=== PATIENT | female | born 1940 | race Caucasian/White ===

== ENCOUNTER → 2017-08-04 14:58 | Outpatient (CLI) | payer MEDICARE, SELFPAY ==
[2017-08-04 15:33] LABS: Basophils % 0.5 % (0.1-2.0); Eosinophils # 0.1 K/mm3 (0.0-0.4); Eosinophils % 1.8 % (0.1-12.0); Hematocrit 45.1 % (37.0-47.0); Hemoglobin 14.3 g/dL (12.2-16.2); Lymphocytes # 1.7 K/mm3 (0.7-4.5); Lymphocytes % 27.5 K/mm3 (10-50); Mean Corpuscular HGB Conc 31.7 g/dL (31.8-35.4); Mean Corpuscular Hemoglobin 29.8 pg (27.0-31.2); Mean Corpuscular Volume 93.9 fl (81-99); Monocytes # 0.5 K/mm3 (0.1-1.0); Monocytes % 7.4 % (1.7-9.3); Neutrophils % 62.8 % (37.0-80.0); Platelet Count 202 K/mm3 (142-424); Red Cell Distribution Width 14.3 % (11.5-17.5); White Blood Count 6.3 K/mm3 (4.8-10.8)
[2017-08-04 16:43] LABS: Alanine Aminotransferase 16 U/L (12-78); Albumin Level 3.8 gm/dL (3.4-5.0); Alkaline Phosphatase 86 U/L (46-116); Anion Gap 10.9 mEq/L (5-15); Aspartate Amino Transferase 20 U/L (15-37); Bilirubin,Total 0.6 mg/dL (0.2-1.0); Blood Urea Nitrogen 17 mg/dL (7-18); Calcium 9.3 mg/dL (8.5-10.1); Carbon Dioxide 34 mmol/L (21.0-32.0); Chloride 102 mmol/L (98-107); Cholesterol 175 mg/dL (140-200); Creatinine,Serum 0.71 mg/dL (0.55-1.02); Estimated Glomerular Filt Rate 80 ml/min (>60); Free Thyroxine Index 2.4 ug/dL (5.93-13.13); GFR (African American) 97 ML/MIN (>60); Glucose 88 mg/dL (74-106); HDL Cholesterol 35 mg/dL (29-89); LDL Cholesterol 126 mg/dL (0-130); Potassium 4.9 mmoL/L (3.5-5.1); Sodium 142 mmol/L (136-145); T4 (Thyroxine) 7.4 ug/dl (4.7-13.3); Thyroid Stimulating Hormone 2.32 uIU/ml (0.358-3.740); Total Protein,Serum 7.8 gm/dL (6.4-8.2); Triglycerides 70 mg/dL (30-200); Triiodothryronine (T3) Uptake 32 % (31-39); VLDL Cholesterol 14 mg/dL (0-40)
== END ==
PROVIDERS: Visit Provider Internal Medicine Adolescent Medicine
DX: E03.9 Hypothyroidism, unspecified (principal); I48.2 Chronic atrial fibrillation
CPT/HCPCS: 36415; 80053; 80061; 84436; 84443; 84479; 85025

== ENCOUNTER 2018-05-04 11:53 | Inpatient (IN) ==
[2018-05-04 13:28] LABS: Basophils % 0.8 % (0.1-2.0); Eosinophils # 0.1 K/mm3 (0.0-0.4); Eosinophils % 1.8 % (0.1-12.0); Hemoglobin 12.3 g/dL (12.2-16.2); Lymphocytes # 0.7 K/mm3 (0.7-4.5); Lymphocytes % 15.4 % (10-50); Mean Corpuscular HGB Conc 30.8 g/dL (31.8-35.4); Mean Corpuscular Hemoglobin 29.3 pg (27.0-31.2); Mean Corpuscular Volume 95.3 fl (81-99); Monocytes # 0.3 K/mm3 (0.1-1.0); Neutrophils # 3.6 K/mm3 (1.8-7.8); Platelet Count 181 K/mm3 (142-424); Red Cell Distribution Width 14.7 % (11.5-17.5); White Blood Count 4.8 K/mm3 (4.8-10.8)
[2018-05-04 13:38] LABS: Albumin Level 3.5 gm/dL (3.4-5.0); Albumin/Globulin Ratio 0.9 (1.1-1.8); Anion Gap 9.6 mEq/L (5-15); Bilirubin,Total 0.9 mg/dL (0.2-1.0); Calcium 9.2 mg/dL (8.5-10.1); Globulin 3.9 gm/dl (1.3-3.2); Potassium 3.6 mmoL/L (3.5-5.1); Total Protein,Serum 7.4 gm/dL (6.4-8.2)
--- NOTE | 2018-05-04 14:10 | Pharmacy Consult Notes ---
[facility] Pharmacy VTE Monitoring - Patient Demographics Admission date: 05/04/18 Report Date: 05/04/18 Time: 14:10 Allergies/Adverse Reactions: Patient Allergies atorvastatin [ATORVASTATIN] Allergy (Intermediate, Verified 08/19/17 09:48) I-RASH Height: 1.57 m Weight: 114.929 kg - VTE Risk Labs: VTE Related Lab Results Hgb 12.3 g/dL (12.2-16.2) 05/04/18 13:14 Hct 40.0 % (37.0-47.0) 05/04/18 13:14 Plt Count 181 K/mm3 (142-424) 05/04/18 13:14 BUN 11 mg/dL (7-18) 05/04/18 13:14 Creatinine 0.90 mg/dL (0.55-1.02) 05/04/18 13:14 Estimated Creat Clear 38 mL/min (50-200) 05/04/18 13:14 Clinical Trial Participant: No - Prophylaxis VTE Prophylaxis Ordered?: Yes Types of VTE Prophylaxis: TEDS Knee High, Pharmacological Pharmacologic Type: Enoxaparin
--- NOTE | 2018-05-04 15:11 | History & Physical Report ---
*Admission Date: 05/04/18 *Chief complaint: shortness of breath, cough *History of present illness: 77 year old female with a significant history of COPD who is on oxygen at home presented to PCP office with a 3 week history of worsening shortness of breath, cough and decreased appetite. In the office she was noted to be tachypneic with room air saturations 73%. She was placed on 2L/NC and saturations responded to 89%. Patient reports right "lung pain." Appetite has been poor. States "I feel weak." Patient typically ambulates with a walker. She was unable to ambulate to the office and was transported up by staff in a wheelchair. Patient was directed admitted for IV antibiotics and further evaluation. CXR obtained on admission showed RLL infiltrate. CBC and CMP were unremarkable. [facility] History I have reviewed the patient's past medical history: Yes Medical History: Reports:: Anxiety, Asthma, Atrial Fibrillation, Chronic Obstructive Pulmonary Disease (COPD), Coronary Artery Disease, Depression, Gastroesophageal Reflux Disease(GERD), Hyperlipidemia, Hypertension, Palpitations Denies:: Cancer, Diabetes Mellitus Type 1, Internal Pacemaker, MRSA Other Medical History: Reports: Anemia, Arthritis Other Surgeries: Yes: Other. No: Pacemaker Amputation: No Fractures: No - *Social History Smoking Status: Former smoker Alcohol Intake: never Substance Use Type: denies use Occupational Status: retired Housing: house Household Members: none - Psychiatric History Expresses thoughts of harming self/others: None Suicide Plan Description: No Plan Pschychiatric History:: Reports:: Anxiety, Depression Comment: No recent travel history *Family Hx:: Coronary Artery Disease Review of Systems - Review of Systems Review of systems:: pertinent systems reviewed and negative unless documented below - Constitutional Reports malaise, Reports weakness Comments: decreased appetite - *Respiratory Reports chest congestion, Reports cough, Reports shortness of breath Meds Home Medications Medication Instructions Recorded Confirmed Type acetaminophen 500 mg capsule 1,000 mg PO Q6H PRN 06/09/17 10/21/17 History aspirin 325 mg tablet 325 mg PO ONCE tab 06/09/17 10/21/17 History buspirone 5 mg tablet 5 mg PO BID tab 06/09/17 10/21/17 History digoxin 125 mcg tablet 125 mcg PO ONCE 06/09/17 10/21/17 History diltiazem CD 240 mg 240 mg PO ONCE 06/09/17 10/21/17 History capsule,extended release 24 hr furosemide 40 mg tablet 40 mg PO DAILY 06/09/17 10/21/17 History lactulose 10 gram/15 mL oral 20 g PO DAILY ml 06/09/17 10/21/17 History solution levothyroxine 50 mcg tablet 50 mcg PO DAILY tab 06/09/17 10/21/17 History losartan 50 mg tablet 50 mg PO ONCE 06/09/17 10/21/17 History nitroglycerin 0.4 mg sublingual 0.4 mg SUBLINGUAL Q5M PRN 06/09/17 10/21/17 History tablet omeprazole 40 mg capsule,delayed 40 mg PO BID 06/09/17 10/21/17 History release potassium chloride 20 mEq oral 20 meq PO DAILY packet 06/09/17 10/21/17 History packet pravastatin 40 mg tablet 40 mg PO HS 06/09/17 10/21/17 History sertraline 100 mg tablet 100 mg PO .qday tab 06/09/17 10/21/17 History tiotropium bromide 18 mcg capsule 18 mcg INHALATION DAILY 06/09/17 10/21/17 History with inhalation device Allergies Allergy/AdvReac Type Severity Reaction Status Date / Time atorvastatin [ATORVASTATIN] Allergy Intermediate I-RASH Verified 08/19/17 09:48 Exam Vital signs and Labs for Last 24 Hours: Temp Pulse Resp BP Pulse Ox 98.6 F 116 H 20 155/106 H 91 L 05/04/18 12:59 05/04/18 12:59 05/04/18 12:59 05/04/18 12:59 05/04/18 12:59 Laboratory Results - last 24 hr 05/04/18 13:14: WBC 4.8, RBC 4.20, Hgb 12.3, Hct 40.0, MCV 95.3, MCH 29.3, MCHC 30.8 L, RDW 14.7, Plt Count 181, MPV 8.0, Neut % (Auto) 75.0, Lymph % (Auto) 15.4, [place] % (Auto) 7.0, Eos % (Auto) 1.8, Baso % (Auto) 0.8, Neut # (Auto) 3.6, Lymph # (Auto) 0.7, [place] # (Auto) 0.3, Eos # (Auto) 0.1, Baso # (Auto) 0.0 05/04/18 13:14: Sodium 140, Potassium 3.6, Chloride 100, Carbon Dioxide 34 H, Anion Gap 9.6, BUN 11, Creatinine 0.90, Estimated Creat Clear 38, Estimated GFR 61, Est GFR ( Amer) 74, Glucose 95, Calcium 9.2, Total Bilirubin 0.9, AST 21, ALT 18, Alkaline Phosphatase 72, Total Protein 7.4, Albumin 3.5, Globulin 3.9 H, Albumin/Globulin Ratio 0.9 L I & O for Last 24 hours: Intake & Output 05/02/18 05/03/18 05/04/18 05/05/18 11:59 11:59 11:59 11:59 Weight 253 lb 6 oz Narrative: Alert and oriented x3. Rate and rhythm regular. Lung sounds with coarse crackles RLL, air flow decreased. Abdomen soft and nontender. LE with 3+ lymphedema, chronic skin changes, blister left medial renner. ENT unremarkable. No acute neuro deficits. Assessment and Plan (1) CAP (community acquired pneumonia) Current visit: Yes Status: Acute Category: Medical Code(s): J18.9 - Pne umonia, unspecified organism (2) Severe chronic obstructive pulmonary disease Current visit: No Status: Chronic Category: Medical Code(s): J44.9 - Chronic obstructive pulmonary disease, unspecified - Assessment and plan all Dx Assessment and Plan for all problems:: Admit to acute care with community acquired pneumonia protocol.
[2018-05-05 06:46] LABS: Basophils % 0.8 % (0.1-2.0); Eosinophils # 0.1 K/mm3 (0.0-0.4); Hematocrit 38.4 % (37.0-47.0); Hemoglobin 11.7 g/dL (12.2-16.2); Lymphocytes # 1.1 K/mm3 (0.7-4.5); Lymphocytes % 21.4 % (10-50); Mean Corpuscular HGB Conc 30.6 g/dL (31.8-35.4); Mean Corpuscular Hemoglobin 29.5 pg (27.0-31.2); Mean Corpuscular Volume 96.2 fl (81-99); Mean Platelet Volume 8.1 fl (7.4-10.4); Monocytes # 0.5 K/mm3 (0.1-1.0); Neutrophils # 3.2 K/mm3 (1.8-7.8); Neutrophils % 65.9 % (37.0-80.0); Platelet Count 164 K/mm3 (142-424); Red Blood Count 3.98 M/mm3 (4.20-5.40); Red Cell Distribution Width 14.8 % (11.5-17.5); White Blood Count 4.9 K/mm3 (4.8-10.8)
[2018-05-05 06:54] LABS: Anion Gap 7.7 mEq/L (5-15); Calcium 8.8 mg/dL (8.5-10.1); Potassium 3.7 mmoL/L (3.5-5.1)
--- NOTE | 2018-05-05 08:20 | Progress Note ---
Internal Medicine - PN: Subj *Date: 05/05/18 *Time: 07:30 Interval history: Patient is sleeping upon entering room, awakens easily to voice. States she feels "a little better." She continues to have a productive cough, sputum is pending Alert and oriented x3. Rate and rhythm regular. 3+ lymphedema. Lung sounds with crackles RLL. Abdomen soft and nontender. Exam Vital signs and Labs for Last 24 Hours: Temp Pulse Resp BP Pulse Ox 97.9 F 107 H 21 123/74 94 L 05/05/18 07:52 05/05/18 07:52 05/05/18 07:52 05/05/18 07:52 05/05/18 07:52 Laboratory Results - last 24 hr 05/04/18 13:14: WBC 4.8, RBC 4.20, Hgb 12.3, Hct 40.0, MCV 95.3, MCH 29.3, MCHC 30.8 L, RDW 14.7, Plt Count 181, MPV 8.0, Neut % (Auto) 75.0, Lymph % (Auto) 15.4, [place] % (Auto) 7.0, Eos % (Auto) 1.8, Baso % (Auto) 0.8, Neut # (Auto) 3.6, Lymph # (Auto) 0.7, [place] # (Auto) 0.3, Eos # (Auto) 0.1, Baso # (Auto) 0.0 05/04/18 13:14: Sodium 140, Potassium 3.6, Chloride 100, Carbon Dioxide 34 H, Anion Gap 9.6, BUN 11, Creatinine 0.90, Estimated Creat Clear 38, Estimated GFR 61, Est GFR ( Amer) 74, Glucose 95, Calcium 9.2, Total Bilirubin 0.9, AST 21, ALT 18, Alkaline Phosphatase 72, Total Protein 7.4, Albumin 3.5, Globulin 3.9 H, Albumin/Globulin Ratio 0.9 L 05/05/18 05:57: WBC 4.9, RBC 3.98 L, Hgb 11.7 L, Hct 38.4, MCV 96.2, MCH 29.5, MCHC 30.6 L, RDW 14.8, Plt Count 164, MPV 8.1, Neut % (Auto) 65.9, Lymph % (Auto) 21.4, [place] % (Auto) 10.0 H, Eos % (Auto) 2.0, Baso % (Auto) 0.8, Neut # (Auto) 3.2, Lymph # (Auto) 1.1, [place] # (Auto) 0.5, Eos # (Auto) 0.1, Baso # (Auto) 0.0 05/05/18 05:57: Sodium 142, Potassium 3.7, Chloride 103, Carbon Dioxide 35 H, Anion Gap 7.7, BUN 11, Creatinine 0.85, Estimated Creat Clear 38, Estimated GFR 65, Est GFR ( Amer) 79, Glucose 94, Calcium 8.8 I & O for Last 24 hours: Intake & Output 05/02/18 05/03/18 05/04/18 05/05/18 11:59 11:59 11:59 11:59 Intake Total 720 / 720 Balance 720 / 720 Weight 253 lb 6 oz Microbiology Reports for the Last 24 Hours: Microbiology 05/04/18 16:35 Sputum - Expectorated Sputum Gram Stain - Final 05/04/18 16:35 Sputum - Expectorated Sputum Sputum Culture - Preliminary Assessment and Plan (1) CAP (community acquired pneumonia) Current visit: Yes Status: Acute Category: Medical Code(s): J18.9 - Pneumonia, unspecified organism (2) Severe chronic obstructive pulmonary disease Current visit: No Status: Chronic Category: Medical Code(s): J44.9 - Chronic obstructive pulmonary disease, unspecified (3) Hypertensive disorder Current visit: No Status: Acute Category: Medical Code(s): I10 - Essential (primary) hypertension (4) Lymphedema Current visit: No Status: Acute Category: Medical Code(s): I89.0 - Lymphedema, not elsewhere classified (5) BMI greater than 40 Current visit: Yes Status: Acute Category: Medical - Assessment and plan all Dx Assessment and Plan for all problems:: Continue IV antibiotics, sputum culture pending. Home medications restarted this morning.
--- NOTE | 2018-05-06 19:33 | Progress Note ---
Internal Medicine - PN: Subj *Date: 05/06/18 *Time: 08:30 Interval history: Patient continues to states she feels poorly. Tolerating good portions of her regular diet. Stable on 2 L nasal cannula oxygen. Still very weak, getting in bedside chair on interview. Afebrile, hemodynamically stable, cough a little more productive. Exam Vital signs and Labs for Last 24 Hours: Temp Pulse Resp BP Pulse Ox 97.9 F 79 20 96/50 L 92 L 05/06/18 15:24 05/06/18 15:24 05/06/18 15:24 05/06/18 15:24 05/06/18 15:24 I & O for Last 24 hours: Intake & Output 05/03/18 05/04/18 05/05/18 05/06/18 23:59 23:59 23:59 23:59 Intake Total 720 / 720 1020 / 1020 720 / 720 Output Total 300 / 300 Balance 720 / 720 720 / 720 720 / 720 Weight 114.929 kg 114.929 kg Microbiology Reports for the Last 24 Hours: Microbiology 05/04/18 13:14 Blood Blood Culture - Preliminary NO GROWTH AFTER 48 HOURS 05/04/18 13:14 Blood Blood Culture - Preliminary NO GROWTH AFTER 48 HOURS 05/04/18 16:35 Sputum - Expectorated Sputum Gram Stain - Final 05/04/18 16:35 Sputum - Expectorated Sputum Sputum Culture - Final Normal Respiratory Krystle Narrative: Alert and oriented x3, chronically ill-appearing, disheveled [place] obese Mild respiratory distress, crackles right lower lobe, wheeze diffuse Abdomen protuberant, nontender, active bowel sounds, bruising on abdominal wall from DVT prophylaxis 2+ bilateral lower extremity edema, no cyanosis or clubbing Assessment and Plan (1) CAP (community acquired pneumonia) Current visit: Yes Status: Acute Category: Medical Code(s): J18.9 - Pneumonia, unspecified organism (2) Severe chronic obstructive pulmonary disease Current visit: No Status: Chronic Category: Medical Code(s): J44.9 - Chronic obstructive pulmonary disease, unspecified (3) Hypertensive disorder Current visit: No Status: Acute Category: Medical Code(s): I10 - Essential (primary) hypertension (4) Lymphedema Current visit: No Status: Acute Category: Medical Code(s): I89.0 - Lymphedema, not elsewhere classified (5) BMI greater than 40 Current visit: Yes Status: Acute Category: Medical - Assessment and plan all Dx Assessment and Plan for all problems:: Continue current treatment. Still awaiting sputum cultures, no change in antibiotics or oxygen. Pending results, transition oral antibiotics tomorrow for likely discharge home at that time given patient was hemodynamically stable and afebrile
[2018-05-06 22:35] LABS: ABG Base Excess 1.7 mmol/L (-2.4-2.3); ABG HCO3 30.4 mmhg (22.0-26.0); ABG Oxygen Saturation 88 % (90-100); ABG PO2 63.7 mmhg (80-100); ABG TCO2 33.1 mmhg (23-27)
[2018-05-06 22:38] LABS: Allen's Test Patient Unable
[2018-05-06 22:39] LABS: ABG PCO2 87.3 mmhg (35.0-45.0); ABG PH 7.16 mmol/L (7.35-7.45)
[2018-05-07 06:06] LABS: ABG Base Excess 2.4 mmol/L (-2.4-2.3); ABG HCO3 30.3 mmhg (22.0-26.0); ABG Oxygen Saturation 96 % (90-100); ABG PH 7.21 mmol/L (7.35-7.45); ABG PO2 87.1 mmhg (80-100); ABG TCO2 32.7 mmhg (23-27)
[2018-05-07 06:08] LABS: Oxygen 45 %
[2018-05-07 06:09] LABS: Allen's Test Acceptable
[2018-05-07 08:11] LABS: Basophils # 0.1 K/mm3 (0-0.2); Basophils % 0.8 % (0.1-2.0); Eosinophils % 0.2 % (0.1-12.0); Hematocrit 42.9 % (37.0-47.0); Hemoglobin 12.5 g/dL (12.2-16.2); Lymphocytes # 0.7 K/mm3 (0.7-4.5); Lymphocytes % 11.6 % (10-50); Mean Corpuscular HGB Conc 29.1 g/dL (31.8-35.4); Mean Corpuscular Volume 103.2 fl (81-99); Mean Platelet Volume 8.5 fl (7.4-10.4); Monocytes # 0.5 K/mm3 (0.1-1.0); Monocytes % 8.8 % (1.7-9.3); Neutrophils # 4.5 K/mm3 (1.8-7.8); Neutrophils % 78.5 % (37.0-80.0); Platelet Count 142 K/mm3 (142-424); Red Blood Count 4.16 M/mm3 (4.20-5.40); Red Cell Distribution Width 14.4 % (11.5-17.5); White Blood Count 5.7 K/mm3 (4.8-10.8)
[2018-05-07 09:02] LABS: Anion Gap 18.9 mEq/L (5-15); Calcium 8.9 mg/dL (8.5-10.1); Potassium 4.9 mmoL/L (3.5-5.1)
--- NOTE | 2018-05-07 09:15 | Progress Note ---
Internal Medicine - PN: Subj *Date: 05/07/18 *Time: 09:15 Exam Vital signs and Labs for Last 24 Hours: Temp Pulse Resp BP Pulse Ox 97.6 F 114 H 24 94/47 L 99 05/07/18 08:00 05/07/18 08:00 05/07/18 08:00 05/07/18 08:00 05/07/18 08:00 Laboratory Results - last 24 hr 05/06/18 22:14: POC Glucose 104 05/06/18 22:33: Specimen Source Left radial, O2 % 36%, 2 lpm nc, ABG pH 7.16 L*, ABG pCO2 87.3 H, ABG pO2 63.7 L, ABG HCO3 30.4 H, ABG Total CO2 33.1 H, ABG O2 Saturation 88 L, ABG Base Excess 1.7, Efren Test Patient unable 05/07/18 06:00: Specimen Source Right radial, O2 % 45, ABG pH 7.21 L*, ABG pCO2 78.0 H, ABG pO2 87.1, ABG HCO3 30.3 H, ABG Total CO2 32.7 H, ABG O2 Saturation 96, ABG Base Excess 2.4 H, Efren Test Acceptable, Vent Rate 20, Tidal Volume bipap 18/8 05/07/18 07:40: WBC 5.7, RBC 4.16 L, Hgb 12.5, Hct 42.9, MCV 103.2 H, MCH 30.0, MCHC 29.1 L, RDW 14.4, Plt Count 142, MPV 8.5, Neut % (Auto) 78.5, Lymph % (Auto) 11.6, [place] % (Auto) 8.8, Eos % (Auto) 0.2, Baso % (Auto) 0.8, Neut # (Auto) 4.5, Lymph # (Auto) 0.7, [place] # (Auto) 0.5, Eos # (Auto) 0.0, Baso # (Auto) 0.1 05/07/18 07:40: Sodium 139, Potassium 4.9 D, Chloride 100, Carbon Dioxide 25 D , Anion Gap 18.9 H, BUN 18 D, Creatinine 2.03 H D, Estimated Creat Clear 18, Estimated GFR 24 L, Est GFR ( Amer) 29 L D, Glucose 90, Calcium 8.9 I & O for Last 24 hours: Intake & Output 05/04/18 05/05/18 05/06/18 05/07/18 23:59 23:59 23:59 23:59 Intake Total 720 / 720 1020 / 1020 720 / 720 Output Total 300 / 300 Balance 720 / 720 720 / 720 720 / 720 Weight 114.929 kg 114.929 kg Microbiology Reports for the Last 24 Hours: Microbiology 05/04/18 13:14 Blood Blood Culture - Preliminary NO GROWTH AFTER 48 HOURS 05/04/18 13:14 Blood Blood Culture - Preliminary NO GROWTH AFTER 48 HOURS 05/04/18 16:35 Sputum - Expectorated Sputum Gram Stain - Final 05/04/18 16:35 Sputum - Expectorated Sputum Sputum Culture - Final Normal Respiratory Krystle Assessment and Plan (1) CAP (community acquired pneumonia) Current visit: Yes Status: Acute Category: Medical Code(s): J18.9 - Pneumonia, unspecified organism (2) Severe chronic obstructive pulmonary disease Current visit: No Status: Chronic Category: Medical Code(s): J44.9 - Chronic obstructive pulmonary disease, unspecified (3) Hypertensive disorder Current visit: No Status: Acute Category: Medical Code(s): I10 - Essential (primary) hypertension (4) Lymphedema Current visit: No Status: Acute Category: Medical Code(s): I89.0 - Lymphedema, not elsewhere classified (5) BMI greater than 40 Current visit: Yes Status: Acute Category: Medical The patient's infection will respond to the chosen ABx?: Yes Is the patient receiving the right drug, dose, and route?: Yes Could a more targeted ABx be ordered?: No (PATIENT CONDITION IMPROVING)
--- NOTE | 2018-05-07 13:26 | Progress Note ---
Internal Medicine - PN: Subj *Date: 05/07/18 *Time: 11:00 Interval history: Over the past 12-18 hours Ms. hogan became more confused and altered. Blood gas last night showed that she had hypercarbia. Initiated on BiPAP overnight. Has tolerated well with some improvement. On interview she still pleasantly confused with orientation to person but not time or place. Additionally noted to have A. fib with RVR over a given dose of thyroxine. And added on metoprolol this morning. Remains afebrile, denies nausea or vomiting. Positive for confusion, shortness of breath. Exam Vital signs and Labs for Last 24 Hours: Temp Pulse Resp BP Pulse Ox 97.0 F L 113 H 20 118/75 90 L 05/07/18 11:27 05/07/18 11:27 05/07/18 11:27 05/07/18 11:27 05/07/18 11:27 Laboratory Results - last 24 hr 05/06/18 22:14: POC Glucose 104 05/06/18 22:33: Specimen Source Left radial, O2 % 36%, 2 lpm nc, ABG pH 7.16 L*, ABG pCO2 87.3 H, ABG pO2 63.7 L, ABG HCO3 30.4 H, ABG Total CO2 33.1 H, ABG O2 Saturation 88 L, ABG Base Excess 1.7, Efren Test Patient unable 05/07/18 06:00: Specimen Source Right radial, O2 % 45, ABG pH 7.21 L*, ABG pCO2 78.0 H, ABG pO2 87.1, ABG HCO3 30.3 H, ABG Total CO2 32.7 H, ABG O2 Saturation 96, ABG Base Excess 2.4 H, Efren Test Acceptable, Vent Rate 20, Tidal Volume bipap 18/8 05/07/18 07:40: WBC 5.7, RBC 4.16 L, Hgb 12.5, Hct 42.9, MCV 103.2 H, MCH 30.0, MCHC 29.1 L, RDW 14.4, Plt Count 142, MPV 8.5, Neut % (Auto) 78.5, Lymph % (Auto) 11.6, [place] % (Auto) 8.8, Eos % (Auto) 0.2, Baso % (Auto) 0.8, Neut # (Auto) 4.5, Lymph # (Auto) 0.7, [place] # (Auto) 0.5, Eos # (Auto) 0.0, Baso # (Auto) 0.1 05/07/18 07:40: Sodium 139, Potassium 4.9 D, Chloride 100, Carbon Dioxide 25 D , Anion Gap 18.9 H, BUN 18 D, Creatinine 2.03 H D, Estimated Creat Clear 18, Estimated GFR 24 L, Est GFR ( Amer) 29 L D, Glucose 90, Calcium 8.9 I & O for Last 24 hours: Intake & Output 05/04/18 05/05/18 05/06/18 05/07/18 23:59 23:59 23:59 23:59 Intake Total 720 / 720 1020 / 1020 720 / 720 340 / 340 Output Total 300 / 300 Balance 720 / 720 720 / 720 720 / 720 340 / 340 Weight 114.929 kg 114.929 kg Microbiology Reports for the Last 24 Hours: Microbiology 05/04/18 13:14 Blood Blood Culture - Preliminary NO GROWTH AFTER 48 HOURS 05/04/18 13:14 Blood Blood Culture - Preliminary NO GROWTH AFTER 48 HOURS Narrative: Alert and oriented x1, chronically ill-appearing, disheveled Morbidly obese Moderate respiratory distress, on BiPAP, crackles right lower lobe, mechanical breath sounds bilaterally Abdomen protuberant, nontender, active bowel sounds, bruising on abdominal wall from DVT prophylaxis 2+ bilateral lower extremity edema, no cyanosis or clubbing Assessment and Plan (1) CAP (community acquired pneumonia) Current visit: Yes Status: Acute Category: Medical Code(s): J18.9 - Pneumonia, unspecified organism (2) Severe chronic obstructive pulmonary disease Current visit: No Status: Chronic Category: Medical Code(s): J44.9 - Chronic obstructive pulmonary disease, unspecified (3) Hypertensive disorder Current visit: No Status: Acute Category: Medical Code(s): I10 - Essential (primary) hypertension (4) Lymphedema Current visit: No Status: Acute Category: Medical Code(s): I89.0 - Lymphedema, not elsewhere classified (5) BMI greater than 40 Current visit: Yes Status: Acute Category: Medical (6) Acute kidney injury Current visit: Yes Status: Acute Category: Medical Code(s): N17.9 - Acute kidney failure, unspecified (7) Acute on chronic respiratory failure with hypoxia and hypercapnia Current visit: Yes Status: Acute Category: Medical Code(s): J96.21 - Acute and chronic respiratory failure with hypoxia; J96.22 - Acute and chronic respiratory failure with hypercapnia - Assessment and plan all Dx Assessment and Plan for all problems:: Patient's condition has declined in the past 24 hours. Continues to be tenuous. At this time having really very distressed due to COPD and pneumonia. Requiring BiPAP due to. Finding well to BiPAP but still pleasantly altered. Additionally noted to have acute kidney injury this, unclear etiology is patient is not nephrotoxic medications. Suspect due to her atrial fibrillation and poor perfusion. Plan for diuresis today, this should both her edema and volume overload. Reassess kidney this evening. Repeat 8385. If time rates BiPAP overnight, transition to trilogy device. Needs physical therapy assess, plan to perform Wednesday. Strong suspicion patient will require placement at least short-term given her debility and multiple comorbidities. Do not believe she care for herself at home in current state. Continues to require aggressive inpatient management
[2018-05-07 18:05] LABS: Anion Gap 10.2 mEq/L (5-15); Calcium 8.7 mg/dL (8.5-10.1); Potassium 5.2 mmoL/L (3.5-5.1)
[2018-05-07 18:36] LABS: ABG Base Excess 3.2 mmol/L (-2.4-2.3); ABG Oxygen Saturation 98 % (90-100); ABG PH 7.28 mmol/L (7.35-7.45); ABG PO2 123.4 mmhg (80-100); Allen's Test Y; Oxygen 40 %
[2018-05-07 18:37] LABS: ABG PCO2 65.7 mmhg (35.0-45.0)
[2018-05-08 09:03] LABS: Albumin Level 3.2 gm/dL (3.4-5.0); Albumin/Globulin Ratio 0.8 (1.1-1.8); Anion Gap 13.2 mEq/L (5-15); Bilirubin,Total 0.6 mg/dL (0.2-1.0); Calcium 8.3 mg/dL (8.5-10.1); Globulin 3.8 gm/dl (1.3-3.2); Phosphorous 4.8 mg/dL (2.4-4.9); Potassium 5.2 mmoL/L (3.5-5.1)
--- NOTE | 2018-05-08 11:25 | Progress Note ---
Internal Medicine - PN: Subj *Date: 05/08/18 *Time: 10:00 Interval history: Ms. Hernandez is continue to be very tenuous over the past 24 hours. Continue to require BiPAP usage mostly when asleep. Kidney injury assessed yesterday. Did not respond to diuresis as it was initially suspected to be due to volume overload and possibly cardiorenal given her A. fib and uncontrolled rate. Course was changed overnight with initiation of fluids with mild improvement this morning. Continuing IV fluids at this time. Additionally patient's ABG has improved gradually however still quite hypercarbic with PCO2 in the 60s. She remains febrile. Heart rate improved on rate control medication. Still pleasantly confused with orientation to person only. No nausea, vomiting, diarrhea, fever, chest pain Exam Vital signs and Labs for Last 24 Hours: Temp Pulse Resp BP Pulse Ox 97.7 F 110 H 18 141/90 H 92 L 05/08/18 08:00 05/08/18 08:00 05/08/18 08:00 05/08/18 08:00 05/08/18 08:00 Laboratory Results - last 24 hr 05/07/18 07:40: B-Natriuretic Peptide 433 H 05/07/18 17:25: Sodium 137, Potassium 5.2 H, Chloride 100, Carbon Dioxide 32 D, Anion Gap 10.2, BUN 22 H, Creatinine 2.19 H, Estimated Creat Clear 16, Estimated GFR 22 L, Est GFR ( Amer) 26 L, Glucose 93, Calcium 8.7 05/07/18 18:32: Specimen Source L/r, O2 % 40, ABG pH 7.28 L, ABG pCO2 65.7 H, ABG pO2 123.4 H, ABG HCO3 30.0 H, ABG Total CO2 32.0 H, ABG O2 Saturation 98, ABG Base Excess 3.2 H, Efren Test Y, Vent Rate 20 05/07/18 21:40: B-Natriuretic Peptide 513 H 05/08/18 08:40: Sodium 136, Potassium 5.2 H, Chloride 100, Carbon Dioxide 28, Anion Gap 13.2, BUN 26 H, Creatinine 1.96 H, Estimated Creat Clear 18, Estimated GFR 25 L, Est GFR ( Amer) 30 L, Glucose 99, Calcium 8.3 L, Phosphorus 4.8, Magnesium 1.8, Total Bilirubin 0.6, AST 33, ALT 21, Alkaline Phosphatase 65, Total Protein 7.0, Albumin 3.2 L, Globulin 3.8 H, Albumin/Globulin Ratio 0.8 L I & O for Last 24 hours: Intake & Output 05/05/18 05/06/18 05/07/18 05/08/18 23:59 23:59 23:59 23:59 Intake Total 1020 / 1020 720 / 720 400 / 400 3128 / 3128 Output Total 300 / 300 180 / 180 350 / 350 Balance 720 / 720 720 / 720 220 / 220 2778 / 2778 Weight 114.929 kg Narrative: Morbidly obese, disheveled, chronically ill-appearing Alert and oriented x1 On BiPAP, mild respiratory distress, crackles right lower lobe with mechanical vent sounds bilaterally Abdomen protuberant, nontender, active bowel sounds, bruising on abdominal wall from DVT prophylaxis 2+ bilateral lower extremity edema, no cyanosis or clubbing Assessment and Plan (1) CAP (community acquired pneumonia) Current visit: Yes Status: Acute Category: Medical Code(s): J18.9 - Pneumonia, unspecified organism (2) Severe chronic obstructive pulmonary disease Current visit: No Status: Chronic Category: Medical Code(s): J44.9 - Chronic obstructive pulmonary disease, unspecified (3) Hypertensive disorder Current visit: No Status: Acute Category: Medical Code(s): I10 - Essential (primary) hypertension (4) Lymphedema Current visit: No Status: Acute Category: Medical Code(s): I89.0 - Lymphedema, not elsewhere classified (5) BMI greater than 40 Current visit: Yes Status: Acute Category: Medical (6) Acute kidney injury Current visit: Yes Status: Acute Category: Medical Code(s): N17.9 - Acute kidney failure, unspecified (7) Acute on chronic respiratory failure with hypoxia and hypercapnia Current visit: Yes Status: Acute Category: Medical Code(s): J96.21 - Acute and chronic respiratory failure with hypoxia; J96.22 - Acute and chronic respiratory failure with hypercapnia - Assessment and plan all Dx Assessment and Plan for all problems:: Patient's condition remains tenuous. Continuing to require BiPAP ventilation with stable mentation. Improved rate control with A. fib. Condition still day by day -Increasing metoprolol for better rate control to 25 mg twice daily -Initiate steroids for COPD versus pneumonia to aid in inflammation -Increase breathing treatment periodicity to every 4 hours -Avoiding nephrotoxins -Continue IV fluids as patient appears to be responding to fluid resuscitation versus previous attempt at diuresis with slight improvement in kidney dysfunction. Repeat lab work this afternoon at 5 PM and in the morning. -Repeat ABG in the morning -Continue BiPAP while asleep, nasal cannula while awake
[2018-05-08 17:26] LABS: Anion Gap 14.3 mEq/L (5-15); Calcium 8.6 mg/dL (8.5-10.1); Potassium 5.3 mmoL/L (3.5-5.1)
[2018-05-09 05:46] LABS: ABG Base Excess -4.5 mmol/L (-2.4-2.3); ABG HCO3 22.3 mmhg (22.0-26.0); ABG Oxygen Saturation 93 % (90-100); ABG PCO2 48.6 mmhg (35.0-45.0); ABG PH 7.28 mmol/L (7.35-7.45); ABG PO2 71.8 mmhg (80-100); ABG TCO2 23.8 mmhg (23-27)
[2018-05-09 05:48] LABS: Oxygen 35 %
[2018-05-09 05:49] LABS: Allen's Test Non Applicable
[2018-05-09 06:19] LABS: Basophils % 0.2 % (0.1-2.0); Eosinophils % 0.5 % (0.1-12.0); Hematocrit 41.9 % (37.0-47.0); Hemoglobin 12.6 g/dL (12.2-16.2); Lymphocytes # 0.6 K/mm3 (0.7-4.5); Lymphocytes % 12.4 % (10-50); Mean Corpuscular HGB Conc 30.1 g/dL (31.8-35.4); Mean Corpuscular Hemoglobin 29.5 pg (27.0-31.2); Mean Platelet Volume 8.4 fl (7.4-10.4); Monocytes # 0.1 K/mm3 (0.1-1.0); Monocytes % 2.8 % (1.7-9.3); Neutrophils # 3.9 K/mm3 (1.8-7.8); Neutrophils % 84.1 % (37.0-80.0); Platelet Count 157 K/mm3 (142-424); Red Blood Count 4.27 M/mm3 (4.20-5.40); Red Cell Distribution Width 14.8 % (11.5-17.5); White Blood Count 4.7 K/mm3 (4.8-10.8)
[2018-05-09 07:44] LABS: Anion Gap 18.7 mEq/L (5-15); Calcium 8.4 mg/dL (8.5-10.1)
[2018-05-09 07:46] LABS: Potassium 5.7 mmoL/L (3.5-5.1)
--- NOTE | 2018-05-09 09:50 | Progress Note ---
Internal Medicine - PN: Subj *Date: 05/09/18 *Time: 08:30 Interval history: overnight Ms. Hernandez has shown improvement on BiPAP. She is more alert and oriented this morning. Knows Name, Place, and year. Kidney function slightly improved with diuresis and respiratory failure stable. Still no BM over the past 24hrs. Allen collecting urine. remains afebrile, BP stable, HR controlled on Metoprolol. No Emesis. C/o stable SOA, gerd Sx with eating, Constipation. Family member at bedside for part of exam this morning who agrees patient has interval improvement since yesterday. Exam Vital signs and Labs for Last 24 Hours: Temp Pulse Resp BP Pulse Ox 97.9 F 92 H 22 132/73 91 L 05/09/18 07:57 05/09/18 09:45 05/09/18 07:57 05/09/18 07:57 05/09/18 08:21 Laboratory Results - last 24 hr 05/08/18 17:04: Sodium 137, Potassium 5.3 H, Chloride 101, Carbon Dioxide 27, Anion Gap 14.3, BUN 30 H, Creatinine 2.00 H, Estimated Creat Clear 18, Estimated GFR 24 L, Est GFR ( Amer) 29 L, Glucose 91, Calcium 8.6 05/08/18 21:21: POC Glucose 86 05/09/18 05:50: WBC 4.7 L, RBC 4.27, Hgb 12.6, Hct 41.9, MCV 98.0, MCH 29.5, MCHC 30.1 L, RDW 14.8, Plt Count 157, MPV 8.4, Neut % (Auto) 84.1 H, Lymph % (Auto) 12.4, [place] % (Auto) 2.8, Eos % (Auto) 0.5, Baso % (Auto) 0.2, Neut # (Auto) 3.9, Lymph # (Auto) 0.6 L, [place] # (Auto) 0.1, Eos # (Auto) 0.0, Baso # (Auto) 0.0 05/09/18 06:00: Specimen Source Right radial, O2 % 35, ABG pH 7.28 L, ABG pCO2 48.6 H, ABG pO2 71.8 L, ABG HCO3 22.3, ABG Total CO2 23.8, ABG O2 Saturation 93, ABG Base Excess -4.5 L, Efren Test Non applicable, Vent Rate 25, Tidal Volume Bipap 20/10 05/09/18 07:20: Sodium 136, Potassium 5.7 H, Chloride 100, Carbon Dioxide 23, Anion Gap 18.7 H, BUN 37 H, Creatinine 1.64 H, Estimated Creat Clear 22, Estimated GFR 30 L, Est GFR ( Amer) 37 L D, Glucose 119 H D, Calcium 8.4 L I & O for Last 24 hours: Intake & Output 05/06/18 05/07/18 05/08/18 05/09/18 23:59 23:59 23:59 23:59 Intake Total 720 / 720 400 / 400 5724 / 5724 1477 / 1477 Output Total 180 / 180 985 / 985 225 / 225 Balance 720 / 720 220 / 220 4739 / 4739 1252 / 1252 Weight 114.929 kg 123.009 kg 124.851 kg Narrative: Alert and oriented x3, chronically ill-appearing, disheveled, Morbidly obese mild respiratory distress, on Vapotherm, interval improvement in Lung exam, still with slight crackles right lower lobe, no wheeze or rhonchi. Abdomen protuberant, nontender, active bowel sounds, bruising on abdominal wall from DVT prophylaxis 3+ bilateral lower extremity edema to thigh, no cyanosis or clubbing PLeasant mood. no focal neurologic deficits, moves extremities equally, strength 5/5 in BUE and 3/5 BLE Assessment and Plan (1) CAP (community acquired pneumonia) Current visit: Yes Status: Acute Category: Medical Code(s): J18.9 - Pneumonia, unspecified organism (2) Severe chronic obstructive pulmonary disease Current visit: No Status: Chronic Category: Medical Code(s): J44.9 - Chronic obstructive pulmonary disease, unspecified (3) Hypertensive disorder Current visit: No Status: Acute Category: Medical Code(s): I10 - Essential (primary) hypertension (4) Lymphedema Current visit: No Status: Acute Category: Medical Code(s): I89.0 - Lymphedema, not elsewhere classified (5) BMI greater than 40 Current visit: Yes Status: Acute Category: Medical (6) Acute kidney injury Current visit: Yes Status: Acute Category: Medical Code(s): N17.9 - Acute kidney failure, unspecified (7) Acute on chronic respiratory failure with hypoxia and hypercapnia Current visit: Yes Status: Acute Category: Medical Code(s): J96.21 - Acute and chronic respiratory failure with hypoxia; J96.22 - Acute and chronic respiratory failure with hypercapnia - Assessment and plan all Dx Assessment and Plan for all problems:: 77yo Critically ill female with minor interval improvement in her respiratory failure. Able to transition from BiPAP to VapoTherm today. patient more alert but still weak. Maintain reservation about improvement and condition. Condition remains tenuous. - slight improvement in renal function, repeat labs q12 to monitor improvement - interval decrease in K - diurese again today x 2 - Cardiology consult pending, appreciate recs. Echo pending - plan for Goals of care discussion with family this afternoon. Currently patient does not want to kept alive with machines if there is no hope. She does however want to be resuscitated if there is a chance of improvement. - continues to be day by day. If worsens pt has requested [facility]. - continue IV fluids, decrease to 75cc/hr. - SpO2 goal >88 asleep, >92 awake. - PO as tolerated. - Continue Steroids and Abx for CAP.
--- NOTE | 2018-05-09 13:53 | Consult Report ---
History of Present Illness Consult date: 05/09/18 Requesting physician: Gabo Galicia Consult reason: shortness of breath Chief complaint: Shortness of breath History of present illness: This is a 77-year-old white female who was admitted to the hospital with shortness of breath. The patient was actually admitted on May 04, 2018 due to shortness of breath a an acute on chronic respiratory failure. The patient has had episodes of atrial fibrillation with RVR as well as an acute exacerbation of congestive heart failure. The patient has been diuresed with IV Lasix. The patient was on BiPAP through the night last night and she reports that her shortness of breath is better today. She has been having some confusion but this morning she is oriented to herself place and time. I am she denies any chest pain or pressure. She does state that she has shortness of breath. She also has PND and orthopnea with this. She denies any edema. She denies fever chills nausea vomiting or diarrhea. She states that her shortness of breath is with rest and exertion. She states she feels much better today than she did yesterday. [facility] History Medical History: Reports:: Anxiety, Asthma, Atrial Fibrillation, Chronic Obstructive Pulmonary Disease (COPD), Coronary Artery Disease, Depression, Gastroesophageal Reflux Disease(GERD), Hyperlipidemia, Hypertension, Palpitations Denies:: Cancer, Diabetes Mellitus Type 1, Internal Pacemaker, MRSA Have you ever received a pneumonia vaccine?: Yes Have you received a flu vaccine this season?: Yes Other Medical History: Reports: Anemia, Arthritis Other Surgeries: Yes: Other. No: Pacemaker Amputation: No Fractures: No - *Social History Smoking Status: Former smoker Alcohol Intake: never Substance Use Type: denies use Occupational Status: retired Housing: house Household Members: none Travel in the last 8 weeks: None - Psychiatric History Expresses thoughts of harming self/others: None Suicide Plan Description: No Plan Pschychiatric History:: Reports:: Anxiety, Depression *Family Hx:: Coronary Artery Disease Meds Home Medications Medication Instructions Recorded Confirmed Type acetaminophen 500 mg capsule 1,000 mg PO Q6H PRN 06/09/17 05/04/18 History buspirone 5 mg tablet 5 mg PO BID tab 06/09/17 05/04/18 History furosemide 40 mg tablet 40 mg PO DAILY 06/09/17 05/04/18 History lactulose 10 gram/15 mL oral 20 g PO DAILY ml 06/09/17 05/04/18 History solution levothyroxine 50 mcg tablet 50 mcg PO DAILY tab 06/09/17 05/04/18 History nitroglycerin 0.4 mg sublingual 0.4 mg SUBLINGUAL Q5M PRN 06/09/17 05/04/18 History tablet omeprazole 40 mg capsule,delayed 40 mg PO BID 06/09/17 05/04/18 History release potassium chloride 20 mEq oral 20 meq PO DAILY packet 06/09/17 05/04/18 History packet pravastatin 40 mg tablet 40 mg PO HS 06/09/17 05/04/18 History sertraline 100 mg tablet 100 mg PO DAILY tab 06/09/17 05/04/18 History tiotropium bromide 18 mcg capsule 18 mcg INHALATION DAILY 06/09/17 05/04/18 History with inhalation device Aspirin [Ecotrin] 81 mg PO DAILY 05/05/18 05/05/18 History Budesonide/Formoterol Fumarate 2 puff IH BID 05/05/18 05/05/18 History [Symbicort 160-4.5 Mcg Inhaler] Allergies Allergy/AdvReac Type Severity Reaction Status Date / Time atorvastatin [ATORVASTATIN] Allergy Intermediate I-RASH Verified 08/19/17 09:48 Review of Systems - Review of Systems Review of systems:: pertinent systems reviewed and negative unless documented below - Constitutional Reports fatigue, Reports lack of energy - *Cardiovascular Reports shortness of breath, Reports shortness of breath with activity - *Respiratory Reports shortness of breath, Reports shortness of breath with activity Comments: Orthopnea - *Neurologic Reports weakness Exam Vital signs and Labs for Last 24 Hours: Temp Pulse Resp BP Pulse Ox 97.9 F 100 H 18 124/64 90 L 05/09/18 11:21 05/09/18 12:00 05/09/18 11:21 05/09/18 11:21 05/09/18 11:21 Laboratory Results - last 24 hr 05/08/18 17:04: Sodium 137, Potassium 5.3 H, Chloride 101, Carbon Dioxide 27, Anion Gap 14.3, BUN 30 H, Creatinine 2.00 H, Estimated Creat Clear 18, Estimated GFR 24 L, Est GFR ( Amer) 29 L, Glucose 91, Calcium 8.6 05/08/18 21:21: POC Glucose 86 05/09/18 05:50: WBC 4.7 L, RBC 4.27, Hgb 12.6, Hct 41.9, MCV 98.0, MCH 29.5, MCHC 30.1 L, RDW 14.8, Plt Count 157, MPV 8.4, Neut % (Auto) 84.1 H, Lymph % (Auto) 12.4, [place] % (Auto) 2.8, Eos % (Auto) 0.5, Baso % (Auto) 0.2, Neut # (Auto) 3.9, Lymph # (Auto) 0.6 L, [place] # (Auto) 0.1, Eos # (Auto) 0.0, Baso # (Auto) 0.0 05/09/18 06:00: Specimen Source Right radial, O2 % 35, ABG pH 7.28 L, ABG pCO2 48.6 H, ABG pO2 71.8 L, ABG HCO3 22.3, ABG Total CO2 23.8, ABG O2 Saturation 93, ABG Base Excess -4.5 L, Efren Test Non applicable, Vent Rate 25, Tidal Volume Bipap 19/0205/09/18 07:20: Sodium 136, Potassium 5.7 H, Chloride 100, Carbon Dioxide 23, Anion Gap 18.7 H, BUN 37 H, Creatinine 1.64 H, Estimated Creat Clear 22, Estimated GFR 30 L, Est GFR ( Amer) 37 L D, Glucose 119 H D, Calcium 8.4 L I & O for Last 24 hours: Intake & Output 05/06/18 05/07/18 05/08/18 05/09/18 23:59 23:59 23:59 23:59 Intake Total 720 / 720 400 / 400 5724 / 5724 1477 / 1477 Output Total 180 / 180 985 / 985 225 / 225 Balance 720 / 720 220 / 220 4739 / 4739 1252 / 1252 Weight 253 lb 6.001 oz 271 lb 3 oz 275 lb 4 oz Microbiology Reports for the Last 24 Hours: Microbiology 05/04/18 13:14 Blood Blood Culture - Final NO GROWTH AFTER 5 DAYS 05/04/18 13:14 Blood Blood Culture - Final NO GROWTH AFTER 5 DAYS Narrative: Her EKG shows atrial fibrillation with RVR, heart rate 110, left anterior hem iblock, and diffuse ST and T wave abnormalities. Her telemetry strip shows atrial fibrillation with a rate of 88. - Constitutional no acute distress, morbidly obese, chronically ill appearing, cooperative - *Routine HEENT Exam Head: Present: normocephalic, atraumatic Eye: Present: EOMI, PERRL ENT: Present: mucous membranes moist - *Routine Neck Exam Present: supple, full ROM, normal carotid upstroke. Absent: JVD, carotid bruit, lymphadenopathy - *Routine Respiratory Exam Present: wheezes (Expiratory), diminished air movement - *Routine Cardiovascular Exam Present: Normal S1, Normal S2, irregularly irregular. Absent: murmur, gallop - *Routine Abdominal Exam Present: soft, normoactive bowel sounds. Absent: tenderness, distended - *Routine Extremities Exam Present: edema (BLE wrapped), pulses intact. Absent: cyanosis, clubbing - *Routine Skin Exam Present: intact, warm. Absent: rash - *Routine Neurological Exam Present: alert, oriented X3, CN II-XII intact. Absent: sensory deficit, motor deficit - Routine Psychiatric Exam Present: normal affect Assessment and Plan (1) CHF (congestive heart failure) Current visit: Yes Status: Acute Category: Medical Code(s): I50.9 - Heart failure, unspecified (2) Atrial fibrillation Current visit: Yes Status: Acute Category: Medical Code(s): I48.91 - Unspecified atrial fibrillation (3) Acute on chronic respiratory failure with hypoxia and hypercapnia Current visit: Yes Status: Acute Category: Medical Code(s): J96.21 - Acute and chronic respiratory failure with hypoxia; J96.22 - Acute and chronic respiratory failure with hypercapnia (4) Severe chronic obstructive pulmonary disease Current visit: No Status: Chronic Category: Medical Code(s): J44.9 - Chronic obstructive pulmonary disease, unspecified (5) CAP (community acquired pneumonia) Current visit: Yes Status: Acute Category: Medical Code(s): J18.9 - Pneumonia, unspecified organism (6) Hypertensive disorder Current visit: No Status: Acute Category: Medical Code(s): I10 - Essential (primary) hypertension (7) Lymphedema Current visit: No Status: Acute Category: Medical Code(s): I89.0 - Lymphedema, not elsewhere classified (8) BMI greater than 40 Current visit: Yes Status: Acute Category: Medical (9) Acute kidney injury Current visit: Yes Status: Acute Category: Medical Code(s): N17.9 - Acute kidney failure, unspecified - Assessment and plan all Dx Assessment and Plan for all problems:: Plan: 1. The patient was admitted to the hospital with shortness of breath. She is currently being treated for COPD and acute on chronic respiratory failure. The patient was on BiPAP last night. She does have improvement in her symptoms today. We will defer management of her COPD and her respiratory failure to her primary care provide. 2. The patient does have pulmonary venous congestion on her chest x-ray which did improve today. The patient was diuresed with Lasix and did tolerate this well. 3. The patient did have atrial fibrillation with RVR. Her heart rate is down some today running anywhere from 88 to low 100s. We will increase her metoprolol to 50 mg p.o. twice daily for better heart rate control. 4. Will get an echocardiogram to evaluate her LV function and to evaluate her congestive heart failure. 5. Her blood pressure is well controlled. 6. Her LDL goal is less than 100. 7. The patient does have chronic kidney disease. Her creatinine is stable at 1.64 today which is down from 2.00. 8. The patient does have congestive heart failure and pulmonary venous congestion on her chest x-ray. We do need to be mindful of the amount of fluid intake the patient is receiving. 9. We will hold off on anticoagulation at this time due to her confusion and falls risk. 10. Further recommendations will be made pending the patient's response to treatment. Thank you for the opportunity help to spent care of this patient.
[2018-05-09 17:44] LABS: Basophils % 0.2 % (0.1-2.0); Eosinophils % 0.6 % (0.1-12.0); Hematocrit 40.8 % (37.0-47.0); Hemoglobin 12.5 g/dL (12.2-16.2); Lymphocytes # 0.6 K/mm3 (0.7-4.5); Lymphocytes % 7.5 % (10-50); Mean Corpuscular HGB Conc 30.7 g/dL (31.8-35.4); Mean Corpuscular Hemoglobin 29.3 pg (27.0-31.2); Mean Corpuscular Volume 95.6 fl (81-99); Mean Platelet Volume 7.5 fl (7.4-10.4); Monocytes # 0.4 K/mm3 (0.1-1.0); Monocytes % 4.9 % (1.7-9.3); Neutrophils # 6.4 K/mm3 (1.8-7.8); Neutrophils % 86.7 % (37.0-80.0); Platelet Count 206 K/mm3 (142-424); Red Blood Count 4.27 M/mm3 (4.20-5.40); Red Cell Distribution Width 14.8 % (11.5-17.5); White Blood Count 7.4 K/mm3 (4.8-10.8)
[2018-05-09 17:47] LABS: Albumin Level 3.1 gm/dL (3.4-5.0); Albumin/Globulin Ratio 0.8 (1.1-1.8); Bilirubin,Total 0.5 mg/dL (0.2-1.0); Calcium 8.3 mg/dL (8.5-10.1); Total Protein,Serum 7.1 gm/dL (6.4-8.2)
[2018-05-09 18:30] LABS: Lymphocytes % 7 % (10-50); Monocytes % 2 % (2-9); Neutrophils % 89 % (42-76); RBC Morphology Normal; Total Cells Counted 100
--- NOTE | 2018-05-09 22:52 | Cardiology Report ---
PROCEDURE: 2-D M-mode and color Doppler study INDICATIONS FOR THE TEST: Chest pain COPD+ Heart Murmur Tobacco Smoking Palpitations Fatigue Syncope Edema+ Hypertension Diabetes Mellitus Rheumatic Fever SOB MUSTAFA Obesity Hyperlipidemia Family History HD Additional History BIPAP PATIENT INFORMATION HEIGHT: 61 WEIGHT:253 GENDER: Female B/P:141/90 2-D/M-MODE INTERPRETATION: 2-D MEASUREMENTS OBSERVED VALUES IN CMS Right Ventricular Dimension (RVDd) 3.4 Interventricular Septum (Thickness)(IVsd) 2.1 Left Ventricular Internal Dimensions(LVIDd) 5.3 Left Ventricular Posterior Wall (Thickness)(LVPWd) 1.3 Aortic Root 3.6 Aortic Cusp Separation 2.0 Left Atrial Dimensions (LAD) 5.8 2D 1. Technically very poor and difficult study, a repeat study with Definity contrast is recommended. 2. The left atrium is moderately enlarged, left ventricle is normal size, mild concentric left ventricular hypertrophy, probably preserved left ventricular systolic function, repeat study with Definity contrast is recommended. 3. Moderately enlarged right atrium and right ventricle, contractility of the right ventricle appears to be normal. 4. The mitral valve has dense mitral calcification, leaflets are minimally thickened. 5. The tricuspid valve is grossly normal. 6. The pulmonic valve is poorly present. 7. No significant pericardial effusion noted. DOPPLER INTERROGATION: Doppler interrogation of the aortic, mitral and tricuspid valvular presence of moderate mitral and tricuspid regurgitation, calculated right ventricular systolic pressure is 49 mmHg consistent moderate pulmonary hypertension. Diastolic parameters are inconclusive. CONCLUSION: 1. Moderate biatrial enlargement, normal left ventricular size, mild concentric left ventricular hypertrophy estimated ejection fraction 55% with no regional wall motion abnormality, a repeat study with Definity contrast is recommended. 2. Moderately enlarged right ventricle with normal contractility. 3. Thickened and calcified aortic valve without aortic stenosis. 4. Moderate mitral and tricuspid regurgitation, calculated right ventricular systolic pressure is 49 mmHg consistent with moderate pulmonary hypertension, Doppler evidence of raised left ventricular end-diastolic pressure. 5. No significant pericardial effusion noted.
[2018-05-10 06:42] LABS: Anion Gap 11.8 mEq/L (5-15); Calcium 8.5 mg/dL (8.5-10.1); Potassium 4.8 mmoL/L (3.5-5.1)
[2018-05-10 06:58] LABS: Basophils % 0.1 % (0.1-2.0); Eosinophils % 0.1 % (0.1-12.0); Hematocrit 40.3 % (37.0-47.0); Hemoglobin 12.7 g/dL (12.2-16.2); Lymphocytes # 0.5 K/mm3 (0.7-4.5); Lymphocytes % 8.3 % (10-50); Mean Corpuscular HGB Conc 31.5 g/dL (31.8-35.4); Mean Corpuscular Hemoglobin 30.2 pg (27.0-31.2); Mean Corpuscular Volume 95.7 fl (81-99); Mean Platelet Volume 7.6 fl (7.4-10.4); Monocytes # 0.3 K/mm3 (0.1-1.0); Monocytes % 4.3 % (1.7-9.3); Neutrophils # 5.1 K/mm3 (1.8-7.8); Neutrophils % 87.1 % (37.0-80.0); Platelet Count 175 K/mm3 (142-424); Red Blood Count 4.21 M/mm3 (4.20-5.40); Red Cell Distribution Width 14.9 % (11.5-17.5); White Blood Count 5.9 K/mm3 (4.8-10.8)
[2018-05-10 09:26] LABS: Lymphocytes % 6 % (10-50); Monocytes % 3 % (2-9); Neutrophils % 91 % (42-76); Total Cells Counted 100
--- NOTE | 2018-05-10 09:52 | Progress Note ---
Subjective Date: 05/10/18 Time: 09:49 Principal diagnosis: SOB, pulmon htn Interval history: This is a 77-year-old white female who was admitted with shortness of breath and acute on chronic respiratory failure. The patient did undergo echocardiogram yesterday which showed a normal ejection fraction at 55%. However there was moderate biatrial enlargement and a Definity contrast echocardiogram was recommended. The patient did have moderate mitral regurgitation as well as moderate pulmonary hypertension. The patient does need diuresis. She remains in atrial fibrillation today with a high heart rate. This morning she reports that she is more short of breath again today. She is more short of breath today than she was yesterday. This is at rest. She states nothing makes her shortness of breath better. She denies any chest pain or pressure. She denies any fever chills nausea vomiting diarrhea. She is complaining of orthopnea. She is somewhat confused at times but she does reorient easily. Exam Vital signs and Labs for Last 24 Hours: Temp Pulse Resp BP Pulse Ox 97.7 F 78 22 115/79 94 L 05/10/18 08:00 05/10/18 08:00 05/10/18 08:00 05/10/18 08:00 05/10/18 08:00 Laboratory Results - last 24 hr 05/09/18 17:28: WBC 7.4 D, RBC 4.27, Hgb 12.5, Hct 40.8, MCV 95.6, MCH 29.3, MCHC 30.7 L, RDW 14.8, Plt Count 206 D, MPV 7.5, Neut % (Auto) 86.7 H, Lymph % (Auto) 7.5 L, [place] % (Auto) 4.9, Eos % (Auto) 0.6, Baso % (Auto) 0.2, Neut # (Auto) 6.4, Lymph # (Auto) 0.6 L, [place] # (Auto) 0.4, Eos # (Auto) 0.0, Baso # (Auto) 0.0, Total Counted 100, Neutrophils % (Manual) 89 H, Band Neutrophils % 2.0, Lymphocytes % (Manual) 7 L, Monocytes % (Manual) 2, Platelet Estimate Normal, RBC Morphology Normal 05/09/18 17:28: Sodium 136, Potassium 5.0, Chloride 100, Carbon Dioxide 28 D, Anion Gap 13.0, BUN 41 H, Creatinine 1.84 H, Estimated Creat Clear 20, Estimated GFR 27 L, Est GFR ( Amer) 32 L, Glucose 127 H, Calcium 8.3 L, Total Bilirubin 0.5, AST 24 D, ALT 20, Alkaline Phosphatase 63, Total Protein 7.1, Albumin 3.1 L, Globulin 4.0 H, Albumin/Globulin Ratio 0.8 L 05/10/18 05:55: WBC 5.9, RBC 4.21, Hgb 12.7, Hct 40.3, MCV 95.7, MCH 30.2, MCHC 31.5 L, RDW 14.9, Plt Count 175, MPV 7.6, Neut % (Auto) 87.1 H, Lymph % (Auto) 8.3 L, [place] % (Auto) 4.3, Eos % (Auto) 0.1, Baso % (Auto) 0.1, Neut # (Auto) 5.1, Lymph # (Auto) 0.5 L, [place] # (Auto) 0.3, Eos # (Auto) 0.0, Baso # (Auto) 0. 0, Total Counted 100, Neutrophils % (Manual) 91 H, Lymphocytes % (Manual) 6 L, Monocytes % (Manual) 3, Platelet Estimate Normal 05/10/18 05:55: Sodium 136, Potassium 4.8, Chloride 101, Carbon Dioxide 28, Anion Gap 11.8, BUN 45 H, Creatinine 1.66 H, Estimated Creat Clear 22, Estimated GFR 30 L, Est GFR ( Amer) 36 L, Glucose 123 H, Calcium 8.5 I & O for Last 24 hours: Intake & Output 05/07/18 05/08/18 05/09/18 05/10/18 23:59 23:59 23:59 23:59 Intake Total 400 / 400 5724 / 5724 2894 / 2894 600 / 600 Output Total 180 / 180 985 / 985 725 / 725 1000 / 1000 Balance 220 / 220 4739 / 4739 2169 / 2169 -400 / -400 Weight 271 lb 3 oz 275 lb 4 oz 278 lb 7 oz Microbiology Reports for the Last 24 Hours: Microbiology 05/04/18 13:14 Blood Blood Culture - Final NO GROWTH AFTER 5 DAYS 05/04/18 13:14 Blood Blood Culture - Final NO GROWTH AFTER 5 DAYS Narrative: Her telemetry strip shows atrial fibrillation with a rate of 89-92. - Constitutional no acute distress, morbidly obese, chronically ill appearing - *Routine HEENT Exam Head: Present: normocephalic, atraumatic Eye: Present: EOMI, PERRL ENT: Present: mucous membranes moist - *Routine Neck Exam Present: supple, full ROM, normal carotid upstroke. Absent: JVD, carotid bruit - *Routine Respiratory Exam Present: decreased breath sounds, rales, wheezes - *Routine Cardiovascular Exam Present: Normal S1, Normal S2, murmur (faint systolic murmur), irregularly irregular. Absent: gallop, rubs - *Routine Abdominal Exam Present: soft, normoactive bowel sounds. Absent: tenderness, distended - *Routine Extremities Exam Present: edema (BLEs, wrapped in bandages bilaterally.), pulses intact. Absent: cyanosis, clubbing - *Routine Skin Exam Present: warm. Absent: rash Comments: BLEs wrapped in bandages - *Routine Neurological Exam Present: alert, CN II-XII intact (Alert to self and place; reorients easily) Progress Note: A&P (1) Pulmonary hypertension Status: Acute Current Visit: Yes (2) Biatrial enlargement Status: Acute Current Visit: Yes (3) SOB (shortness of breath) Status: Acute Current Visit: No (4) CAP (community acquired pneumonia) Status: Acute Current Visit: Yes (5) Severe chronic obstructive pulmonary disease Status: Chronic Current Visit: No (6) Hypertensive disorder Status: Acute Current Visit: No (7) Lymphedema Status: Acute Current Visit: No (8) BMI greater than 40 Status: Acute Current Visit: Yes (9) Acute kidney injury Status: Acute Current Visit: Yes (10) Acute on chronic respiratory failure with hypoxia and hypercapnia Status: Acute Current Visit: Yes Assessment and Plan for All Diagnoses:: Plan: 1. The patient was admitted to the hospital with shortness of breath and acute on chronic respiratory failure. The patient did have vascular congestion on a chest x-ray. Her echocardiogram yesterday showed an ejection fraction of 55%. She had moderate biatrial enlargement. Moderate mitral regurgitation and moderate pulmonary hypertension. The patient does need more diuresis but given her renal function will diurese her on an as-needed basis. We will give her a dose of Lasix 40 mg IV x1 dose today. 2. We will obtain a BNP today. 3. We will get an echo with Definity contrast as recommended on her 2D echo. 4. We will discontinue her IV fluids. Given her pulmonary hypertension she needs less fluid intake. 5. The patient remains in atrial fibrillation her heart rate remains high at 92. Will increase her metoprolol to 100 mg p.o. twice daily. 6. She remains on Lovenox for anticoagulation 7. Her blood pressure is acceptable at this time 8. Her LDL goal is less than 100 9. Further recommendations be made pending the patient's response to treatment. Thank you for the opportunity to help participate in the care of this patient.
--- NOTE | 2018-05-10 10:45 | Progress Note ---
Internal Medicine - PN: Subj *Date: 05/10/18 *Time: 08:30 Interval history: Stable overnight. Fluid neutral yesterday. Sitting up eating breakfast on exam with assistance. Quite talkative. Shortness of breath stable. Denies nausea or vomiting. Does had some abdominal discomfort as she has not had a bowel movement since admission. Afebrile emo dynamically stable Exam Vital signs and Labs for Last 24 Hours: Temp Pulse Resp BP Pulse Ox 97.7 F 78 22 115/79 94 L 05/10/18 08:00 05/10/18 08:00 05/10/18 08:00 05/10/18 08:00 05/10/18 08:40 Laboratory Results - last 24 hr 05/09/18 17:28: WBC 7.4 D, RBC 4.27, Hgb 12.5, Hct 40.8, MCV 95.6, MCH 29.3, MCHC 30.7 L, RDW 14.8, Plt Count 206 D, MPV 7.5, Neut % (Auto) 86.7 H, Lymph % (Auto) 7.5 L, Day % (Auto) 4.9, Eos % (Auto) 0.6, Baso % (Auto) 0.2, Neut # (Auto) 6.4, Lymph # (Auto) 0.6 L, Day # (Auto) 0.4, Eos # (Auto) 0.0, Baso # (Auto) 0.0, Total Counted 100, Neutrophils % (Manual) 89 H, Band Neutrophils % 2.0, Lymphocytes % (Manual) 7 L, Monocytes % (Manual) 2, Platelet Estimate Normal, RBC Morphology Normal 05/09/18 17:28: Sodium 136, Potassium 5.0, Chloride 100, Carbon Dioxide 28 D, Anion Gap 13.0, BUN 41 H, Creatinine 1.84 H, Estimated Creat Clear 20, Estimated GFR 27 L, Est GFR ( Amer) 32 L, Glucose 127 H, Calcium 8.3 L, Total Bilirubin 0.5, AST 24 D, ALT 20, Alkaline Phosphatase 63, Total Protein 7.1, Albumin 3.1 L, Globulin 4.0 H, Albumin/Globulin Ratio 0.8 L 05/10/18 05:55: WBC 5.9, RBC 4.21, Hgb 12.7, Hct 40.3, MCV 95.7, MCH 30.2, MCHC 31.5 L, RDW 14.9, Plt Count 175, MPV 7.6, Neut % (Auto) 87.1 H, Lymph % (Auto) 8.3 L, Day % (Auto) 4.3, Eos % (Auto) 0.1, Baso % (Auto) 0.1, Neut # (Auto) 5.1, Lymph # (Auto) 0.5 L, Day # (Auto) 0.3, Eos # (Auto) 0.0, Baso # (Auto) 0.0, Total Counted 100, Neutrophils % (Manual) 91 H, Lymphocytes % (Manual) 6 L, Monocytes % (Manual) 3, Platelet Estimate Normal 05/10/18 05:55: Sodium 136, Potassium 4.8, Chloride 101, Carbon Dioxide 28, Anion Gap 11.8, BUN 45 H, Creatinine 1.66 H, Estimated Creat Clear 22, Estimated GFR 30 L, Est GFR ( Amer) 36 L, Glucose 123 H, Calcium 8.5 05/10/18 05:55: B-Natriuretic Peptide 815 H I & O for Last 24 hours: Intake & Output 05/07/18 05/08/18 05/09/18 05/10/18 23:59 23:59 23:59 23:59 Intake Total 400 / 400 5724 / 5724 2894 / 2894 600 / 600 Output Total 180 / 180 985 / 985 725 / 725 1000 / 1000 Balance 220 / 220 4739 / 4739 2169 / 2169 -400 / -400 Weight 123.009 kg 124.851 kg 126.297 kg Microbiology Reports for the Last 24 Hours: Microbiology 05/04/18 13:14 Blood Blood Culture - Final NO GROWTH AFTER 5 DAYS 05/04/18 13:14 Blood Blood Culture - Final NO GROWTH AFTER 5 DAYS Narrative: Alert and oriented x3, chronically ill-appearing, disheveled, Morbidly obese mild respiratory distress, on Vapotherm, interval improvement in Lung exam, still with slight crackles right lower lobe, no wheeze or rhonchi. Abdomen protuberant, nontender, active bowel sounds, bruising on abdominal wall from DVT prophylaxis 3+ bilateral lower extremity edema to thigh, no cyanosis or clubbing PLeasant mood. no focal neurologic deficits, moves extremities equally, strength 5/5 in BUE and 3/5 BLE Assessment and Plan (1) Pulmonary hypertension Current visit: Yes Status: Acute Category: Medical Code(s): I27.20 - Pulmonary hypertension, unspecified (2) Biatrial enlargement Current visit: Yes Status: Acute Category: Medical Code(s): I51.7 - Cardiomegaly (3) SOB (shortness of breath) Current visit: No Status: Acute Category: Medical Code(s): R06.02 - Shortness of breath (4) CAP (community acquired pneumonia) Current visit: Yes Status: Acute Category: Medical Code(s): J18.9 - Pneumonia, unspecified organism (5) Severe chronic obstructive pulmonary disease Current visit: No Status: Chronic Category: Medical Code(s): J44.9 - Chronic obstructive pulmonary disease, unspecified (6) Hypertensive disorder Current visit: No Status: Acute Category: Medical Code(s): I10 - Essential (primary) hypertension (7) Lymphedema Current visit: No Status: Acute Category: Medical Code(s): I89.0 - Lymphedema, not elsewhere classified (8) BMI greater than 40 Current visit: Yes Status: Acute Category: Medical (9) Acute kidney injury Current visit: Yes Status: Acute Category: Medical Code(s): N17.9 - Acute kidney failure, unspecified (10) Acute on chronic respiratory failure with hypoxia and hypercapnia Current visit: Yes Status: Acute Category: Medical Code(s): J96.21 - Acute and chronic respiratory failure with hypoxia; J96.22 - Acute and chronic respiratory failure with hypercapnia - Assessment and plan all Dx Assessment and Plan for all problems:: 77yo Critically ill female with minor interval improvement in her respiratory failure. Tolerating nighttime BiPAP, transition to daytime NC O2 with goal of weaning to level for DC to nursing facility. patient more alert but still weak. Maintain reservation about improvement and condition. Condition remains tenuous. - slight improvement in renal function, repeat labs q24 to monitor improvement - interval decrease in K - diurese again today x 1 with 80mg IV lasix - Cardiology consult, appreciate recs. Echo with moderate PHTN, needs diuresis; rec to increase Metoprolol to 100mg BID. DC'd IVF. -- plan for ECHO with definity contrast. - plan for Goals of care discussion with family this afternoon. Currently patient does not want to kept alive with machines if there is no hope. She does however want to be resuscitated if there is a chance of improvement. - continues to be day by day. If worsens pt has [facility]. - continue IV fluids, decrease to 75cc/hr. - SpO2 goal >88 asleep, >92 awake. - PO as tolerated. - DC shaw after diuresis - PT to work with patient - working on placement, will need SNF vs LTAC
--- NOTE | 2018-05-10 20:10 | Cardiology Report ---
PROCEDURE: Limited study INDICATIONS FOR THE TEST: Chest pain COPD+ Heart Murmur Tobacco Smoking Palpitations Fatigue Syncope Edema Hypertension Diabetes Mellitus Rheumatic Fever SOB + MUSTAFA Obesity+Hyperlipidemia Family History HD Additional History Echo with Definity PATIENT INFORMATION HEIGHT: 61 WEIGHT:278 GENDER: Female B/P:125/75 2-D/M-MODE INTERPRETATION: 2-D MEASUREMENTS OBSERVED VALUES IN CMS Right Ventricular Dimension (RVDd) Interventricular Septum (Thickness)(IVsd) Left Ventricular Internal Dimensions(LVIDd) Left Ventricular Posterior Wall (Thickness)(LVPWd) Aortic Root Aortic Cusp Separation Left Atrial Dimensions (LAD) 2D DOPPLER INTERROGATION: CONCLUSION: 1. Definitely contrast was utilized to delineate endocardial surfaces, visually estimated ejection fraction approximately 40%, there is moderate hypokinesis involving the mid to distal septum, anteroapical and apical wall, there is no left ventricular thrombus seen.
[2018-05-11 07:48] LABS: Basophils % 0.1 % (0.1-2.0); Eosinophils % 0.4 % (0.1-12.0); Hematocrit 42.7 % (37.0-47.0); Hemoglobin 12.9 g/dL (12.2-16.2); Lymphocytes # 0.5 K/mm3 (0.7-4.5); Mean Corpuscular HGB Conc 30.2 g/dL (31.8-35.4); Mean Corpuscular Hemoglobin 29.5 pg (27.0-31.2); Mean Corpuscular Volume 97.8 fl (81-99); Mean Platelet Volume 7.8 fl (7.4-10.4); Monocytes # 0.6 K/mm3 (0.1-1.0); Monocytes % 10.2 % (1.7-9.3); Neutrophils # 4.5 K/mm3 (1.8-7.8); Neutrophils % 80.3 % (37.0-80.0); Platelet Count 151 K/mm3 (142-424); Red Blood Count 4.37 M/mm3 (4.20-5.40); Red Cell Distribution Width 14.7 % (11.5-17.5); White Blood Count 5.7 K/mm3 (4.8-10.8)
[2018-05-11 08:17] LABS: Anion Gap 11.6 mEq/L (5-15); Calcium 8.6 mg/dL (8.5-10.1); Phosphorous 3.7 mg/dL (2.4-4.9); Potassium 4.6 mmoL/L (3.5-5.1)
--- NOTE | 2018-05-11 08:53 | Progress Note ---
Internal Medicine - PN: Subj *Date: 05/11/18 *Time: 07:40 Interval history: Patient is resting in bed on bi-pap, appears comfortable. Opens eye to name, denies pain. Exam Vital signs and Labs for Last 24 Hours: Temp Pulse Resp BP Pulse Ox 97.8 F 95 H 22 134/71 95 05/11/18 07:56 05/11/18 07:56 05/11/18 07:56 05/11/18 07:56 05/11/18 07:56 Laboratory Results - last 24 hr 05/10/18 05:55: Total Counted 100, Neutrophils % (Manual) 91 H, Lymphocytes % (Manual) 6 L, Monocytes % (Manual) 3, Platelet Estimate Normal 05/10/18 05:55: B-Natriuretic Peptide 815 H 05/11/18 07:20: WBC 5.7, RBC 4.37, Hgb 12.9, Hct 42.7, MCV 97.8, MCH 29.5, MCHC 30.2 L, RDW 14.7, Plt Count 151, MPV 7.8, Neut % (Auto) 80.3 H, Lymph % (Auto) 9.0 L, [place] % (Auto) 10.2 H, Eos % (Auto) 0.4, Baso % (Auto) 0.1, Neut # (Auto) 4.5, Lymph # (Auto) 0.5 L, [place] # (Auto) 0.6, Eos # (Auto) 0.0, Baso # (Auto) 0.0 05/11/18 07:20: Sodium 136, Potassium 4.6, Chloride 101, Carbon Dioxide 28, Anion Gap 11.6, BUN 51 H, Creatinine 1.45 H, Estimated Creat Clear 25, Estimated GFR 35 L, Est GFR ( Amer) 42 L, Glucose 115 H, Calcium 8.6, Phosphorus 3.7, Magnesium 1.7 I & O for Last 24 hours: Intake & Output 05/08/18 05/09/18 05/10/18 05/11/18 11:59 11:59 11:59 11:59 Intake Total 3188 / 3188 4073 / 4073 2016 2556 / 2556 Output Total 530 / 530 860 / 860 1500 / 1500 800 / 800 Balance 2658 / 2658 3213 / 3213 517 / 517 1756 / 1756 Weight 275 lb 4 oz 278 lb 7 oz 281 lb 1 oz Narrative: Alert and oriented x3. Rate and rhythm regular. Lung sounds clear anteriorly. 2-3+ lymphedema with lymph wraps on both lower legs. Abdomen soft and nontender Assessment and Plan (1) Pulmonary hypertension Current visit: Yes Status: Acute Category: Medical Code(s): I27.20 - Pulmonary hypertension, unspecified (2) Biatrial enlargement Current visit: Yes Status: Acute Category: Medical Code(s): I51.7 - Cardiomegaly (3) SOB (shortness of breath) Current visit: No Status: Acute Category: Medical Code(s): R06.02 - Shortness of breath (4) CAP (community acquired pneumonia) Current visit: Yes Status: Acute Category: Medical Code(s): J18.9 - Pneumonia, unspecified organism (5) Severe chronic obstructive pulmonary disease Current visit: No Status: Chronic Category: Medical Code(s): J44.9 - Chronic obstructive pulmonary disease, unspecified (6) Hypertensive disorder Current visit: No Status: Acute Category: Medical Code(s): I10 - Essential (primary) hypertension (7) Lymphedema Current visit: No Status: Acute Category: Medical Code(s): I89.0 - Lymphedema, not elsewhere classified (8) BMI greater than 40 Current visit: Yes Status: Acute Category: Medical (9) Acute kidney injury Current visit: Yes Status: Acute Category: Medical Code(s): N17.9 - Acute kidney failure, unspecified (10) Acute on chronic respiratory failure with hypoxia and hypercapnia Current visit: Yes Status: Acute Category: Medical Code(s): J96.21 - Acute and chronic respiratory failure with hypoxia; J96.22 - Acute and chronic respiratory failure with hypercapnia - Assessment and plan all Dx Assessment and Plan for all problems:: Continue IV antibiotics and breathing treatments. Out of bed with PT today. Consult OT for evaluation to work on ADL's. Encourage patient to feed herself. Place on 40% VM.
--- NOTE | 2018-05-11 11:55 | Progress Note ---
<Patsy Briones - Last Filed: 05/11/18 11:58> Subjective Date: 05/11/18 Time: 10:20 Principal diagnosis: SOB, pulmon htn Interval history: This is a 77-year-old white female who was admitted for shortness of breath and acute on chronic respiratory failure. The patient did undergo a Definity contrast echocardiogram yesterday. This showed an ejection fraction of 40-45%. There was some hypokinesis in the distal septum. No LV thrombus was identified. The patient denies any chest pain or pressure. She is still complaining of some shortness of breath today but states this is somewhat better than yesterday. She does appear to be a little more agitated today. She is alert and oriented to self and place. Still confused to time but does reorient easily. She remains in atrial fibrillation today. Her heart rate is under much better control today. States that her shortness of breath is at rest. Worse with exertion. She still has some orthopnea. She denies any fever chills nausea vomiting or diarrhea. She did diurese well with Lasix yesterday. Exam Vital signs and Labs for Last 24 Hours: Temp Pulse Resp BP Pulse Ox 97.8 F 81 22 134/71 93 L 05/11/18 07:56 05/11/18 10:20 05/11/18 07:56 05/11/18 07:56 05/11/18 10:20 Laboratory Results - last 24 hr 05/11/18 07:20: WBC 5.7, RBC 4.37, Hgb 12.9, Hct 42.7, MCV 97.8, MCH 29.5, MCHC 30.2 L, RDW 14.7, Plt Count 151, MPV 7.8, Neut % (Auto) 80.3 H, Lymph % (Auto) 9.0 L, [place] % (Auto) 10.2 H, Eos % (Auto) 0.4, Baso % (Auto) 0.1, Neut # (Auto) 4.5, Lymph # (Auto) 0.5 L, [place] # (Auto) 0.6, Eos # (Auto) 0.0, Baso # (Auto) 0.0 05/11/18 07:20: Sodium 136, Potassium 4.6, Chloride 101, Carbon Dioxide 28, Anion Gap 11.6, BUN 51 H, Creatinine 1.45 H, Estimated Creat Clear 25, Estimated GFR 35 L, Est GFR ( Amer) 42 L, Glucose 115 H, Calcium 8.6, Phosphorus 3.7, Magnesium 1.7 I & O for Last 24 hours: Intake & Output 05/08/18 05/09/18 05/10/18 05/11/18 23:59 23:59 23:59 23:59 Intake Total 5724 / 5724 2894 / 2894 3056 / 3056 100 / 100 Output Total 985 / 985 725 / 725 1700 / 1700 100 / 100 Balance 4739 / 4739 2169 / 2169 1356 / 1356 0 / 0 Weight 271 lb 3 oz 275 lb 4 oz 278 lb 7 oz 281 lb 1 oz Narrative: Her telemetry strip is atrial fibrillation with a rate of 79. - Constitutional no acute distress, morbidly obese, chronically ill appearing, cooperative - *Routine HEENT Exam Head: Present: normocephalic, atraumatic Eye: Present: EOMI, PERRL ENT: Present: mucous membranes moist - *Routine Neck Exam Present: supple, full ROM, normal carotid upstroke. Absent: JVD, carotid bruit, lymphadenopathy - *Routine Respiratory Exam Present: decreased breath sounds, wheezes (Expiratory) - *Routine Cardiovascular Exam Present: Normal S1, Normal S2, murmur (2/6 systolic murmur), irregularly irregular - *Routine Abdominal Exam Present: soft, normoactive bowel sounds. Absent: tenderness, distended, rebound - *Routine Extremities Exam Present: edema (Bilateral lower extremities). Absent: cyanosis, clubbing - *Routine Skin Exam Comments: The patient's bilateral lower extremities from the renner down are wrapped in a dressing. - *Routine Neurological Exam Present: alert, CN II-XII intact (She is alert and oriented to person and place) Progress Note: A&P (1) Pulmonary hypertension Status: Acute Current Visit: Yes (2) Biatrial enlargement Status: Acute Current Visit: Yes (3) SOB (shortness of breath) Status: Acute Current Visit: No (4) CAP (community acquired pneumonia) Status: Acute Current Visit: Yes (5) Severe chronic obstructive pulmonary disease Status: Chronic Current Visit: No (6) Hypertensive disorder Status: Acute Current Visit: No (7) Lymphedema Status: Acute Current Visit: No (8) BMI greater than 40 Status: Acute Current Visit: Yes (9) Acute kidney injury Status: Acute Current Visit: Yes (10) Acute on chronic respiratory failure with hypoxia and hypercapnia Status: Acute Current Visit: Yes (11) Cardiomyopathy Status: Acute Current Visit: Yes Assessment and Plan for All Diagnoses:: Plan: 1. The patient was admitted to the hospital with shortness of breath and acute on chronic respiratory failure. The patient has been being treated for pulmonary hypertension. She does have some cardiomyopathy as well as her ejection fraction is around 40-45%. We prefer medical management at this time. We will give her another dose of Lasix 40 mg IV today and then start her on 40 mg of p.o. Lasix daily starting tomorrow. 2. Her blood pressure is acceptable. 3. Her LDL goal is less than 100. 4. The patient atrial fibrillation is rate controlled on metoprolol. 5. The patient remains on Lovenox for anticoagulation. Given her dementia and confusion she really is not a candidate for oral anticoagulation. She would also most likely not be a candidate for left atrial appendage clip. 6. We will repeat a BMP in the morning. 7. Patient does have cardiomyopathy. She is already on a beta-josué. We will get her started on losartan 25 mg daily. 8. Further recommendations will be made pending the patient's response to treatment. Thank you for the opportunity help her to spend care of this patient. <Sergio Riley - Last Filed: 05/11/18 12:50> Exam Vital signs and Labs for Last 24 Hours: Temp Pulse Resp BP Pulse Ox 97.8 F 81 22 134/71 93 L 05/11/18 07:56 05/11/18 10:20 05/11/18 07:56 05/11/18 07:56 05/11/18 10:20 Laboratory Results - last 24 hr 05/11/18 07:20: WBC 5.7, RBC 4.37, Hgb 12.9, Hct 42.7, MCV 97.8, MCH 29.5, MCHC 30.2 L, RDW 14.7, Plt Count 151, MPV 7.8, Neut % (Auto) 80.3 H, Lymph % (Auto) 9.0 L, [place] % (Auto) 10.2 H, Eos % (Auto) 0.4, Baso % (Auto) 0.1, Neut # (Auto) 4.5, Lymph # (Auto) 0.5 L, [place] # (Auto) 0.6, Eos # (Auto) 0.0, Baso # (Auto) 0.0 05/11/18 07:20: Sodium 136, Potassium 4.6, Chloride 101, Carbon Dioxide 28, Anion Gap 11.6, BUN 51 H, Creatinine 1.45 H, Estimated Creat Clear 25, Estimated GFR 35 L, Est GFR ( Amer) 42 L, Glucose 115 H, Calcium 8.6, Phosphorus 3.7, Magnesium 1.7 I & O for Last 24 hours: Intake & Output 05/09/18 05/10/18 05/11/18 05/12/18 11:59 11:59 11:59 11:59 Intake Total 4073 / 4073 2016 2556 / 2556 Output Total 860 / 860 1500 / 1500 800 / 800 Balance 3213 / 3213 517 / 517 1756 / 1756 Weight 275 lb 4 oz 278 lb 7 oz 281 lb 1 oz Progress Note: A&P (1) Pulmonary hypertension Status: Acute Current Visit: Yes (2) Biatrial enlargement Status: Acute Current Visit: Yes (3) SOB (shortness of breath) Status: Acute Current Visit: No (4) CAP (community acquired pneumonia) Status: Acute Current Visit: Yes (5) Severe chronic obstructive pulmonary disease Status: Chronic Current Visit: No (6) Hypertensive disorder Status: Acute Current Visit: No (7) Lymphedema Status: Acute Current Visit: No (8) BMI greater than 40 Status: Acute Current Visit: Yes (9) Acute kidney injury Status: Acute Current Visit: Yes (10) Acute on chronic respiratory failure with hypoxia and hypercapnia Status: Acute Current Visit: Yes (11) Cardiomyopathy Status: Acute Current Visit: Yes
[2018-05-11 14:20] LABS: ABG Base Excess -0.8 mmol/L (-2.4-2.3); ABG HCO3 26.8 mmhg (22.0-26.0); ABG Oxygen Saturation 97 % (90-100); ABG PH 7.23 mmol/L (7.35-7.45); ABG PO2 100.2 mmhg (80-100); ABG TCO2 28.9 mmhg (23-27)
[2018-05-11 14:21] LABS: Oxygen 4 LPM %
[2018-05-11 14:22] LABS: Allen's Test ACCEPTABLE
[2018-05-11 16:31] LABS: Microscopic, Urine URINE MICROSCOPIC (MICROSCOPIC)
[2018-05-11 16:42] LABS: Appearance,Urine CLOUDY (Clear); Bilirubin,Urine Negative (Negative); Blood, Urine 3+ (Negative); Color,Urine YELLOW (Yellow); Glucose,Urine (UA) Negative (Negative); Ketones,Urine Negative (Negative); Leukocyte Esterase,Urine Negative (Negative); Protein,Urine 1+ (Negative); Specific Gravity, Urine 1.025 (1.005-1.030); Urobilinogen,Urine 0.2 EU/dl (0.2)
[2018-05-11 17:52] LABS: Bacteria,Urine 1+ /lpf; RBC,Urine 50-100 #/hpf (0-3); Squamous Epithelial Cell,Urine Occasional #/hpf (0-5)
[2018-05-12 07:26] LABS: Eosinophils % 0.5 % (0.1-12.0); Hematocrit 43.2 % (37.0-47.0); Hemoglobin 13.5 g/dL (12.2-16.2); Lymphocytes # 1.2 K/mm3 (0.7-4.5); Lymphocytes % 17.5 % (10-50); Mean Corpuscular HGB Conc 31.2 g/dL (31.8-35.4); Mean Corpuscular Hemoglobin 29.6 pg (27.0-31.2); Mean Corpuscular Volume 94.9 fl (81-99); Mean Platelet Volume 7.5 fl (7.4-10.4); Monocytes % 14.9 % (1.7-9.3); Neutrophils # 4.5 K/mm3 (1.8-7.8); Platelet Count 103 K/mm3 (142-424); Red Blood Count 4.55 M/mm3 (4.20-5.40); Red Cell Distribution Width 14.9 % (11.5-17.5); White Blood Count 6.7 K/mm3 (4.8-10.8)
[2018-05-12 07:47] LABS: Anion Gap 12.9 mEq/L (5-15); Calcium 8.5 mg/dL (8.5-10.1); Potassium 4.9 mmoL/L (3.5-5.1)
--- NOTE | 2018-05-12 10:27 | Progress Note ---
<Patsy Briones - Last Filed: 05/12/18 10:27> Subjective Date: 05/12/18 Time: 09:30 Principal diagnosis: SOB, pulmon htn Interval history: This is a 77-year-old white female who was admitted to the hospital with shortness of breath and acute on chronic respiratory failure. The patient did undergo a Definity contrast echocardiogram which showed an ejection fraction of 40-45% with some hypokinesis in the distal septum. There was no LV thrombus identified. The patient denies any chest pain or pressure. She is still having shortness of breath. Yesterday her pH was 7.23 and her PCO2 was 66 and her PO2 was 100.2. The patient is back on BiPAP today. She is confused this morning. She is confused to person place and time today. She is short of breath at rest and states that this is worse than yesterday. She remains in atrial fibrillat ion. Her heart rate is down to about 86 bpm. She has diuresed with IV Lasix and is now on oral Lasix. Exam Vital signs and Labs for Last 24 Hours: Temp Pulse Resp BP Pulse Ox 97.6 F 55 L 16 108/68 L 96 05/12/18 08:00 05/12/18 08:00 05/12/18 08:00 05/12/18 08:00 05/12/18 08:00 Laboratory Results - last 24 hr 05/11/18 14:17: Specimen Source L. radial, O2 % 4 lpm, ABG pH 7.23 L*, ABG pCO2 66.0 H, ABG pO2 100.2 H, ABG HCO3 26.8 H, ABG Total CO2 28.9 H, ABG O2 Saturation 97, ABG Base Excess -0.8, Efren Test Acceptable 05/11/18 15:15: Urine Color Yellow, Urine Appearance Cloudy, Urine pH 6.0, Ur Specific [place] 1.025, Urine Protein 1+, Urine Glucose (UA) Negative, Urine Ketones Negative, Urine Blood 3+, Urine Nitrate Negative, Urine Bilirubin Negative, Urine Urobilinogen 0.2, Ur Leukocyte Esterase Negative, Urine RBC 50- 100, Urine WBC None, Ur Squamous Epith Cells Occasional, Urine Bacteria 1+ 05/12/18 07:08: Sodium 137, Potassium 4.9, Chloride 101, Carbon Dioxide 28, Anion Gap 12.9, BUN 56 H, Creatinine 1.36 H, Estimated Creat Clear 27, Estimated GFR 38 L, Est GFR ( Amer) 46 L, Glucose 94, Calcium 8.5 05/12/18 07:08: WBC 6.7, RBC 4.55, Hgb 13.5, Hct 43.2, MCV 94.9, MCH 29.6, MCHC 31.2 L, RDW 14.9, Plt Count 103 L D, MPV 7.5, Neut % (Auto) 67.0, Lymph % (Auto) 17.5, [place] % (Auto) 14.9 H, Eos % (Auto) 0.5, Baso % (Auto) 0.0 L, Neut # (Auto) 4.5, Lymph # (Auto) 1.2, [place] # (Auto) 1.0, Eos # (Auto) 0.0, Baso # (Auto) 0.0 I & O for Last 24 hours: Intake & Output 05/09/18 05/10/18 05/11/18 05/12/18 23:59 23:59 23:59 23:59 Intake Total 2894 / 2894 3056 / 3056 100 / 100 Output Total 725 / 725 1700 / 1700 650 / 650 1000 / 1000 Balance 2169 / 2169 1356 / 1356 -550 / -550 -1000 / -1000 Weight 275 lb 4 oz 278 lb 7 oz 281 lb 1 oz 279 lb 5 oz Narrative: Her telemetry strip shows atrial fibrillation with a rate of 88. - Constitutional no acute distress, morbidly obese Comments: The patient is confused. - *Routine HEENT Exam Head: Present: normocephalic, atraumatic Eye: Present: EOMI, PERRL ENT: Present: mucous membranes moist - *Routine Neck Exam Present: supple, full ROM, normal carotid upstroke. Absent: JVD, carotid bruit, lymphadenopathy - *Routine Respiratory Exam Present: decreased breath sounds, wheezes (Expiratory) - *Routine Cardiovascular Exam Present: Normal S1, Normal S2, murmur (2/6 systolic murmur), irregularly irregular - *Routine Abdominal Exam Present: soft, normoactive bowel sounds. Absent: tenderness, distended - *Routine Extremities Exam Present: edema (Bilateral lower extremities), pulses intact. Absent: cyanosis, clubbing - *Routine Skin Exam Present: warm. Absent: rash Comments: Bilateral lower extremities wrapped in dressing from renner to the ankle. - *Routine Neurological Exam The patient is confused today. Progress Note: A&P (1) Pulmonary hypertension Status: Acute Current Visit: Yes (2) Biatrial enlargement Status: Acute Current Visit: Yes (3) SOB (shortness of breath) Status: Acute Current Visit: No (4) CAP (community acquired pneumonia) Status: Acute Current Visit: Yes (5) Severe chronic obstructive pulmonary disease Status: Chronic Current Visit: No (6) Hypertensive disorder Status: Acute Current Visit: No (7) Lymphedema Status: Acute Current Visit: No (8) BMI greater than 40 Status: Acute Current Visit: Yes (9) Acute kidney injury Status: Acute Current Visit: Yes (10) Acute on chronic respiratory failure with hypoxia and hypercapnia Status: Acute Current Visit: Yes (11) Cardiomyopathy Status: Acute Current Visit: Yes Assessment and Plan for All Diagnoses:: Plan: 1. The patient was admitted to the hospital with shortness of breath and acute on chronic respiratory failure. The patient was diagnosed with pneumonia and was being treated for this by her primary care provider. She is still currently being treated for her acute on chronic respiratory failure by her primary care provider. 2. Yesterday the patient became more short of breath while on nasal cannula. Her pH was checked and it was down to 7.23. Her PCO2 was 66 and her PO2 was 100.2. The patient has been back on BiPAP since then. She remains short of breath today. Her pulmonary status is being treated by her primary care provider. 3. The patient does have pulmonary hypertension and some cardiomyopathy with an ejection fraction of 40-45%. She has been getting 6 and did diurese. She started oral Lasix today. She is on a beta-josué and irbesartan as losartan is not formulary here. 4. No plans for invasive cardiac testing at this time. She denies chest pain or pressure. Medical management is preferred given her mental status and pulmonary status. 5. The patient is confused today. She is not really following any of my commands or answering any of my questions. 6. Her blood pressure is acceptable. 7. The patient does have atrial fibrillation. She is now on metoprolol. Her heart rate is stable for now. 8. The patient is on Lovenox for anticoagulation. Given her dementia and confusion she is not really a candidate for oral anticoagulation. 9. Her creatinine is stable at 1.3 today. 10. We will defer her pulmonary management to her primary care provider. No further recommendations at this time from a cardiac standpoint. Thank you for the opportunity help her to spend care of this patient. <Sergio Riley - Last Filed: 05/12/18 15:04> Exam Vital signs and Labs for Last 24 Hours: Temp Pulse Resp BP Pulse Ox 97.5 F L 110 H 20 102/59 L 96 05/12/18 11:26 05/12/18 12:00 05/12/18 11:26 05/12/18 11:26 05/12/18 14:19 Laboratory Results - last 24 hr 05/11/18 15:15: Urine Color Yellow, Urine Appearance Cloudy, Urine pH 6.0, Ur Specific [place] 1.025, Urine Protein 1+, Urine Glucose (UA) Negative, Urine Ketones Negative, Urine Blood 3+, Urine Nitrate Negative, Urine Bilirubin Negative, Urine Urobilinogen 0.2, Ur Leukocyte Esterase Negative, Urine RBC 50- 100, Urine WBC None, Ur Squamous Epith Cells Occasional, Urine Bacteria 1+ 05/12/18 07:08: Sodium 137, Potassium 4.9, Chloride 101, Carbon Dioxide 28, Anion Gap 12.9, BUN 56 H, Creatinine 1.36 H, Estimated Creat Clear 27, Estimated GFR 38 L, Est GFR ( Amer) 46 L, Glucose 94, Calcium 8.5 05/12/18 07:08: WBC 6.7, RBC 4.55, Hgb 13.5, Hct 43.2, MCV 94.9, MCH 29.6, MCHC 31.2 L, RDW 14.9, Plt Count 103 L D, MPV 7.5, Neut % (Auto) 67.0, Lymph % (Auto) 17.5, [place] % (Auto) 14.9 H, Eos % (Auto) 0.5, Baso % (Auto) 0.0 L, Neut # (Auto) 4.5, Lymph # (Auto) 1.2, [place] # (Auto) 1.0, Eos # (Auto) 0.0, Baso # (Auto) 0.0 I & O for Last 24 hours: Intake & Output 01/0805/11/18 05/12/18 05/13/18 11:59 11:59 11:59 11:59 Intake Total 2016 2556 / 2556 Output Total 1500 / 1500 800 / 800 1550 / 1550 Balance 517 / 517 1756 / 1756 -1550 / -1550 Weight 278 lb 7 oz 281 lb 1 oz 279 lb 5 oz Progress Note: A&P (1) Pulmonary hypertension Status: Acute Current Visit: Yes (2) Biatrial enlargement Status: Acute Current Visit: Yes (3) SOB (shortness of breath) Status: Acute Current Visit: No (4) CAP (community acquired pneumonia) Status: Acute Current Visit: Yes (5) Severe chronic obstructive pulmonary disease Status: Chronic Current Visit: No (6) Hypertensive disorder Status: Acute Current Visit: No (7) Lymphedema Status: Acute Current Visit: No (8) BMI greater than 40 Status: Acute Current Visit: Yes (9) Acute kidney injury Status: Acute Current Visit: Yes (10) Acute on chronic respiratory failure with hypoxia and hypercapnia Status: Acute Current Visit: Yes (11) Cardiomyopathy Status: Acute Current Visit: Yes (12) Acute on chronic systolic heart failure Status: Acute Current Visit: Yes Assessment and Plan for All Diagnoses:: Physician Attestation I was present during all of the critical components of the office visit. The patient was seen, evaluated, and examined by me. I have read the office note that was documented by the scribe and agree with the documentation.
--- NOTE | 2018-05-12 11:56 | Progress Note ---
Internal Medicine - PN: Subj *Date: 05/12/18 *Time: 08:15 Interval history: Patient remains on Bi-pap. She is lethargic and confused this morning. Despite aggressive treatment of her pneumonia, COPD and CHF she has continued to decline. Daughter at bedside who I have only seen once of the course of caring for Ms. Hernandez for several years is at bedside. She became vigorously emotional and angry when Hospice was mentioned by Dr. Galicia. She requests transfer to tertiary care center for further evaluation. Exam Vital signs and Labs for Last 24 Hours: Temp Pulse Resp BP Pulse Ox 97.5 F L 54 L 20 102/59 L 96 05/12/18 11:26 05/12/18 11:26 05/12/18 11:26 05/12/18 11:26 05/12/18 11:26 Laboratory Results - last 24 hr 05/11/18 14:17: Specimen Source L. radial, O2 % 4 lpm, ABG pH 7.23 L*, ABG pCO2 66.0 H, ABG pO2 100.2 H, ABG HCO3 26.8 H, ABG Total CO2 28.9 H, ABG O2 Satur ation 97, ABG Base Excess -0.8, Efren Test Acceptable 05/11/18 15:15: Urine Color Yellow, Urine Appearance Cloudy, Urine pH 6.0, Ur Specific [place] 1.025, Urine Protein 1+, Urine Glucose (UA) Negative, Urine Ketones Negative, Urine Blood 3+, Urine Nitrate Negative, Urine Bilirubin Negative, Urine Urobilinogen 0.2, Ur Leukocyte Esterase Negative, Urine RBC 50- 100, Urine WBC None, Ur Squamous Epith Cells Occasional, Urine Bacteria 1+ 05/12/18 07:08: Sodium 137, Potassium 4.9, Chloride 101, Carbon Dioxide 28, Anion Gap 12.9, BUN 56 H, Creatinine 1.36 H, Estimated Creat Clear 27, Estimated GFR 38 L, Est GFR ( Amer) 46 L, Glucose 94, Calcium 8.5 05/12/18 07:08: WBC 6.7, RBC 4.55, Hgb 13.5, Hct 43.2, MCV 94.9, MCH 29.6, MCHC 31.2 L, RDW 14.9, Plt Count 103 L D, MPV 7.5, Neut % (Auto) 67.0, Lymph % (Auto) 17.5, [place] % (Auto) 14.9 H, Eos % (Auto) 0.5, Baso % (Auto) 0.0 L, Neut # (Auto) 4.5, Lymph # (Auto) 1.2, [place] # (Auto) 1.0, Eos # (Auto) 0.0, Baso # (Auto) 0.0 I & O for Last 24 hours: Intake & Output 05/09/18 05/10/18 05/11/18 05/12/18 11:59 11:59 11:59 11:59 Intake Total 4073 / 4073 2016 2556 / 2556 Output Total 860 / 860 1500 / 1500 800 / 800 1550 / 1550 Balance 3213 / 3213 517 / 517 1756 / 1756 -1550 / -1550 Weight 275 lb 4 oz 278 lb 7 oz 281 lb 1 oz 279 lb 5 oz Narrative: Chronically ill female. Lethargic, opens eyes to touch, follows simple commands. Rate and rhythm irregular. Anterior lung smalls with scattered wheezes. 2+ lymphedema with lymph wraps on bilateral lower extremities. Abdomen soft and nontender. Assessment and Plan (1) Pulmonary hypertension Current visit: Yes Status: Acute Category: Medical Code(s): I27.20 - Pulmonary hypertension, unspecified (2) Biatrial enlargement Current visit: Yes Status: Acute Category: Medical Code(s): I51.7 - Cardiomegaly (3) SOB (shortness of breath) Current visit: No Status: Acute Category: Medical Code(s): R06.02 - Shortness of breath (4) CAP (community acquired pneumonia) Current visit: Yes Status: Acute Category: Medical Code(s): J18.9 - Pneumonia, unspecified organism (5) Severe chronic obstructive pulmonary disease Current visit: No Status: Chronic Category: Medical Code(s): J44.9 - Chronic obstructive pulmonary disease, unspecified (6) Hypertensive disorder Current visit: No Status: Acute Category: Medical Code(s): I10 - Essential (primary) hypertension (7) Lymphedema Current visit: No Status: Acute Category: Medical Code(s): I89.0 - Lymphedema, not elsewhere classified (8) BMI greater than 40 Current visit: Yes Status: Acute Category: Medical (9) Acute kidney injury Current visit: Yes Status: Acute Category: Medical Code(s): N17.9 - Acute kidney failure, unspecified (10) Acute on chronic respiratory failure with hypoxia and hypercapnia Current visit: Yes Status: Acute Category: Medical Code(s): J96.21 - Acute and chronic respiratory failure with hypoxia; J96.22 - Acute and chronic respiratory failure with hypercapnia (11) Cardiomyopathy Current visit: Yes Status: Acute Category: Medical Code(s): I42.9 - Cardiomyopathy, unspecified (12) Acute on chronic systolic heart failure Current visit: Yes Status: Acute Category: Medical Code(s): I50.23 - Acute on chronic systolic (congestive) heart failure - Assessment and plan all Dx Assessment and Plan for all problems:: Cardiology note reviewed and appreciated. Overall patient has poor prognosis due to her severe lung and heart disease. Family was not receptive to this discussion and requests transfer to tertiary care center. Spoke with physicians at [facility], [facility] and [facility] in [place] regarding patient transfer. There are currently no beds available at these facilities. Patient has been placed on the waiting list for transfer pending bed availability at all three facilities. Continue bi-pap.
--- NOTE | 2018-05-12 13:20 | Discharge Summary ---
General - General Admission date:: 05/04/18 Discharge date: 05/12/18 HPI HPI: 77 year old female with a significant history of COPD who is on oxygen at home presented to PCP office with a 3 week history of worsening shortness of breath, cough and decreased appetite. In the office she was noted to be tachypneic with room air saturations 73%. She was placed on 2L/NC and saturations responded to 89%. Patient reports right "lung pain." Appetite has been poor. States "I feel weak." Patient typically ambulates with a walker. She was unable to ambulate to the office and was transported up by staff in a wheelchair. Patient was directed admitted for IV antibiotics and further evaluation. CXR obtained on admission showed RLL infiltrate. CBC and CMP were unremarkable. Hospital Course Hospital Course: Patient was admitted for exacerbation of COPD and pneumonia. CXR was obtained which showed RLL infilrate. Sputum and blood cultures were obtained which showed no growth. She continued to have worsening respiratory failure that required bi-pap which has been alternated with vapotherm. Cardiology was consulted who obtained an Echo which showed EF 55%, increased her metoprolol and diuresed her with Lasix. Despite aggressive treatment her respiratory status has continued to decline. Overall patient has poor prognosis due to her severe heart and lung disease. Family became violently emotional and angry at mention of Hospice care and request transfer to tertiary care center for further evaluation. Phone calls were made and patient was accepted by Dr. Dumont at [facility] in [place]. Transfer patient to [facility] for further evaluation. Objective Vital signs: Temp Pulse Resp BP Pulse Ox 97.5 F L 54 L 20 102/59 L 96 05/12/18 11:26 05/12/18 11:26 05/12/18 11:26 05/12/18 11:26 05/12/18 11:26 Results Labs on day of discharge: Labs from last 24 hours 05/12/18 05/12/18 05/11/18 07:08 07:08 15:15 WBC 6.7 RBC 4.55 Hgb 13.5 Hct 43.2 MCV 94.9 MCH 29.6 MCHC 31.2 L RDW 14.9 Plt Count 103 L D MPV 7.5 Neut % (Auto) 67.0 Lymph % (Auto) 17.5 [place] % (Auto) 14.9 H Eos % (Auto) 0.5 Baso % (Auto) 0.0 L Neut # (Auto) 4.5 Lymph # (Auto) 1.2 [place] # (Auto) 1.0 Eos # (Auto) 0.0 Baso # (Auto) 0.0 Specimen Source O2 % ABG pH ABG pCO2 ABG pO2 ABG HCO3 ABG Total CO2 ABG O2 Saturation ABG Base Excess Efren Test Sodium 137 Potassium 4.9 Chloride 101 Carbon Dioxide 28 Anion Gap 12.9 BUN 56 H Creatinine 1.36 H Estimated Creat Clear 27 Estimated GFR 38 L Est GFR ( Amer) 46 L Glucose 94 Calcium 8.5 Urine Color Yellow Urine Appearance Cloudy Urine pH 6.0 Ur Specific [place] 1.025 Urine Protein 1+ Urine Glucose (UA) Negative Urine Ketones Negative Urine Blood 3+ Urine Nitrate Negative Urine Bilirubin Negative Urine Urobilinogen 0.2 Ur Leukocyte Esterase Negative Urine RBC 50-100 Urine WBC None Ur Squamous Epith Cells Occasional Urine Bacteria 1+ 05/11/18 14:17 WBC RBC Hgb Hct MCV MCH MCHC RDW Plt Count MPV Neut % (Auto) Lymph % (Auto) [place] % (Auto) Eos % (Auto) Baso % (Auto) Neut # (Auto) Lymph # (Auto) [place] # (Auto) Eos # (Auto) Baso # (Auto) Specimen Source L. radial O2 % 4 lpm ABG pH 7.23 L* ABG pCO2 66.0 H ABG pO2 100.2 H ABG HCO3 26.8 H ABG Total CO2 28.9 H ABG O2 Saturation 97 ABG Base Excess -0.8 Efren Test Acceptable Sodium Potassium Chloride Carbon Dioxide Anion Gap BUN Creatinine Estimated Creat Clear Estimated GFR Est GFR ( Amer) Glucose Calcium Urine Color Urine Appearance Urine pH Ur Specific [place] Urine Protein Urine Glucose (UA) Urine Ketones Urine Blood Urine Nitrate Urine Bilirubin Urine Urobilinogen Ur Leukocyte Esterase Urine RBC Urine WBC Ur Squamous Epith Cells Urine Bacteria DS: Diagnosis - Discharge Diagnosis (1) Pulmonary hypertension Status: Acute (2) Biatrial enlargement Status: Acute (3) SOB (shortness of breath) Status: Acute (4) CAP (community acquired pneumonia) Status: Acute (5) Severe chronic obstructive pulmonary disease Status: Chronic (6) Hypertensive disorder Status: Acute (7) Lymphedema Status: Acute (8) BMI greater than 40 Status: Acute (9) Acute kidney injury Status: Acute (10) Acute on chronic respiratory failure with hypoxia and hypercapnia Status: Acute (11) Cardiomyopathy Status: Acute (12) Acute on chronic systolic heart failure Status: Acute Discharge Plan - Patient Discharge Instructions ACTIVITY: Bed rest DIET: continue same diet Patient Instructions: DI for Chronic Obstructive Pulmonary Disease, DI for Pneumonia -- Adult, DI for Atrial Fibrillation - Follow up Plan Disposition: Xfer Short-Term Hosp Home Medications: Home Medications Medication Instructions Recorded Confirmed Type acetaminophen 500 mg capsule 1,000 mg PO Q6H PRN 06/09/17 05/04/18 History buspirone 5 mg tablet 5 mg PO BID tab 06/09/17 05/04/18 History furosemide 40 mg tablet 40 mg PO DAILY 06/09/17 05/04/18 History lactulose 10 gram/15 mL oral 20 g PO DAILY ml 06/09/17 05/04/18 History solution levothyroxine 50 mcg tablet 50 mcg PO DAILY tab 06/09/17 05/04/18 History nitroglycerin 0.4 mg sublingual 0.4 mg SUBLINGUAL Q5M PRN 06/09/17 05/04/18 History tablet omeprazole 40 mg capsule,delayed 40 mg PO BID 06/09/17 05/04/18 History release potassium chloride 20 mEq oral 20 meq PO DAILY packet 06/09/17 05/04/18 History packet pravastatin 40 mg tablet 40 mg PO HS 06/09/17 05/04/18 History sertraline 100 mg tablet 100 mg PO DAILY tab 06/09/17 05/04/18 History tiotropium bromide 18 mcg capsule 18 mcg INHALATION DAILY 06/09/17 05/04/18 History with inhalation device Aspirin [Ecotrin] 81 mg PO DAILY 05/05/18 05/05/18 History Budesonide/Formoterol Fumarate 2 puff IH BID 05/05/18 05/05/18 History [Symbicort 160-4.5 Mcg Inhaler] Prescriptions/Medication Reconciliation: Continue acetaminophen 500 mg capsule 1,000 mg PO Q6H PRN PRN Reason: pain buspirone 5 mg tablet 5 mg PO BID tab furosemide 40 mg tablet 40 mg PO DAILY lactulose 10 gram/15 mL oral solution 20 g PO DAILY ml nitroglycerin 0.4 mg sublingual tablet 0.4 mg SUBLINGUAL Q5M PRN PRN Reason: Chest Pain omeprazole 40 mg capsule,delayed release 40 mg PO BID potassium chloride 20 mEq oral packet 20 meq PO DAILY packet pravastatin 40 mg tablet 40 mg PO HS tiotropium bromide 18 mcg capsule with inhalation device 18 mcg INHALATION DAILY levothyroxine 50 mcg tablet 50 mcg PO DAILY tab sertraline 100 mg tablet 100 mg PO DAILY tab Aspirin [Ecotrin] 81 mg PO DAILY Budesonide/Formoterol Fumarate [Symbicort 160-4.5 Mcg Inhaler] 2 puff IH BID
== END 2018-05-12 15:33 | disposition short-term general hospital (02) | DRG 193 ==
LOC: 2ND 11:58
PROVIDERS: ADMIT Internal Medicine Adolescent Medicine; ATTEND Internal Medicine Adolescent Medicine
CPT/HCPCS: 36415; 71010; 71020; 71045; 71046; 74000; 74018; 80048; 80053; 81001; 82803; 82962; 83735; 83880; 84100; 85007; 85025; 87040; 87070; 87205; 93005; 93306; 94640; 94660; 94760; 94761; 97110; 97116; 97162; 97166; 97530; J0456; J2405